=== PATIENT | female | born 1995 | race Caucasian/White ===

== ENCOUNTER 2025-05-27 21:58 | Emergency (ER) | payer BC, SELFPAY ==
--- OUTSIDE RECORDS SUMMARY | 2023-01-04 10:00 | XMS_ITS | Continuity of Care Document ---
Author Organization [facility] Address [address] [place] [address] Phone Care Team Providers Care Separations Scientist Name Role Phone Lukas Benavides Unavailable Unavailable Allergies, Adverse Reactions, Alerts Substance Reaction Status Criticality No Known allergies Procedures Procedure Date TB Read TB INTRADERMAL TEST TB Read TB INTRADERMAL TEST No Charge TB INTRADERMAL TEST IMMUNIZATION ADMIN CHICKEN POX VACCINE, SC IMMUNIZATION ADMIN CHICKEN POX VACCINE, SC IMMUNIZATION ADMIN Meningococcal Conjugate Vaccine 015 IMMUNIZATION ADMIN, EACH ADD TDAP VACCINE >7 IM IMMUNIZATION ADMIN MENINGOCOCCAL VACCINE, IM IMMUNIZATION ADMIN, EACH ADD TDAP VACCINE >7 IM SPORTS PHYSICIAL OFFICE/OUTPATIENT VISIT, NEW Advance Directives Directive Yes / No Effective Date File Name No Information Encounters Encounter Description Practice Location Reason(s) For Visit Diagnoses Date Provider Providers Copied on Encounter [facility], [address], [place], [id number], [place] tel:[phone] [facility] No Information 3 Yuri Figueroa. [address], [place], [id number] , [place]. tel: [phone] [facility], [address], [place], [id number], [place] tel:[phone] [facility] Encounter for screening for respiratory tuberculosis 3 Visci DO Lukas. [address], [place], [id number] , [place]. tel: [phone] [facility], [address], [place], [id number], [place] tel:[phone] [facility] No Information 3 Visci DO Lukas. [address], [place], [id number] , [place]. tel: [phone] [facility], [address], [place], [id number], [place] tel:[phone] [facility] Encounter for screening for respiratory tuberculosis 3 Visci DO Lukas. [address], [place], [id number] , [place]. tel: [phone] [facility], [address], [place], [id number], [place] tel:[phone] [facility] Encounter for screening for respiratory tuberculosis Sep- 0- 1 Visci DO Lukas. [address], [place], [id number] , [place]. tel: [phone] [facility], [address], [place], [id number], [place] tel:[phone] [facility] TB test (chief complaint) Encounter for screening for respiratory tuberculosis Sep-0 1 Visci DO Lukas. [address], [place], [id number] , [place]. tel: [phone] [facility], [address], [place], [id number], [place] tel:[phone] [facility] No Information 0 Visci DO Lukas. [address], [place], [id number] , [place]. tel: [phone] [facility], [address], [place], [id number], [place] tel:[phone] [facility] No Information 0 Visci DO Gaytan. [address], [place], [id number] , [place]. tel:[phone] [facility], [address], [place], [id number], [place] tel:[phone] [facility] No Information 5 Visci DO Gaytan. [address], [place], [id number] , [place]. tel:[phone] SPORTS PHYSICIAL [facility], [address] [place] [address], [id number], [place] tel:[phone] [facility] physical (sport) (chief complaint) Sports PhysicalRoutine or child health check 1 Braeden Pollock. [address] [place], [address]. tel:[phone] Family History Family Member Type Diagnosis Age At Onset grandparent Problem (finding) Cancer Father Problem (finding) hypertension Father Problem (finding) diabetes melli tus in first degree relative Immunizations Vaccine Date Status Comments Varicella administered Source: New Imm unization Record Varicella administered Source: New Imm unization Record TDaP administered Source: New Imm unization Record MCV4 administered Source: New Imm unization Record Payers Payer name Insurance type Covered green party ID Authoriza tion(s) [facility] [place] [id number] [facility] [place] [id number] [facility] [place] CI [id number] [facility] [place] [id number] Social History Type Description Quantity Date Captured Comments Alcohol Use Details Unknown Caffeine Use Details Unknown Tobacco Use Status No Information Smoking Status No Information Sex Female Sexual Orientation Straight or heterosexual Gender Identity Female Chief Complaint And Reason For Visit No Information Reason For Referral Reason For Referral No Information Plan Of Treatment Date Type Action Status Goal RLP. Due on due Goal Depression screening. Due on due Goal PAP. Due on due Goal PRAPARE ASSESSMENT. Due on due Goal Influenza vaccine. Due on [place] due Goal Tdap due Goal Tdap Vaccine. Due on 2024 due Goal Tdap Vaccine. Due on 2024 due Goal PAP. Due on due Goal Tdap due Goal Influenza vaccine. Due on [place] due Goal Depression screening. Due on due Goal RLP. Due on due Goal PRAPARE ASSESSMENT. Due on due Goal Tdap Vaccine. Due on 2024 due Goal PRAPARE ASSESSMENT. Due on due Goal Depression screening. Due on due Goal Tdap due Goal PAP. Due on due Goal RLP. Due on due Goal Influenza vaccine. Due on [place] due Goal PAP. Due on due Goal Tdap due Goal Depression screening. Due on due Goal PRAPARE ASSESSMENT. Due on due Goal Tdap Vaccine. Due on 2024 due Goal RLP. Due on due Goal Influenza vaccine. Due on Ma due History Of Present Illness Encounter Date Complaint History Of Prese nt Illness TB test Positive TB in t he pastBorn in the [place] Functional Status Date Functional Assessmen t No Information Instructions Date Instruction Additional Infor mation No Information Assessments Type Assessment Date No Information Patient Care Teams Name Effective Dates (start - stop) Status Members No Information
--- OUTSIDE RECORDS SUMMARY | 2025-05-27 22:15 | XMS_ITS | Encounter Summary ---
Author Organization [employer] Address [facility] [id number] [address] [place] [address] Care Team Providers Care Asparagus Buncher Name Role Phone Barbara Ramires MD Primary Care Provider Reason for Visit * Reason Comments Med Refill Encounter Details Date Type Department Care Team (Late st Contact Info) Description 12/10/2020 Refill [facility] [address] [place] [phone] Ileana Graves MD [address] [place] [address] 101, [address], [address] [place] [address] Epilepsy, generalized, convulsive ([facility]) Social History Tobacco Use Types Packs/Day Years Used Date Smoking Tobacco: Never Smokeless Tobacco: Never Alcohol Use Standard Drinks/Week Comments Not Currently 0 (1 standard drink = 0.6 oz pur e alcohol) Childcare Answer Date Recorded Childcare Unknown 03/23/2019 Employment Answer Date Recorded Employment Unknown 03/23/2019 Purpose - Life Answer Date Recorded Purpose and direction in life Unknown Comments Unknown Sex and Gender Information Value Date Recorded Sex Assigned at Not on file Legal Sex Female 4:02 PM EDT Gender Identity Not on file Sexual Orientation Not on file documented as of this encounter Plan of Treatment Not on file documented as of this encounter Visit Diagnoses Diagnosis Epilepsy, generalized, 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
--- OUTSIDE RECORDS SUMMARY | 2025-05-27 22:15 | XMS_ITS | Encounter Summary ---
Author Organization [employer] Address [facility] [place][id number] [address] [place] [address] Care Team Providers Care Typewriter Assembly And Parts Inspector Name Role Phone Barbara Ramries MD Primary Care Provider Reason for Visit * Reason Comments Med Refill Encounter Details Date Type Department Care Team (Late st Contact Info) Description 01/22/2021 Refill [facility] [address] [place] [phone] Ileana Graves MD [address] [place] [address] 101, [address], [address] [place] [address] Epilepsy, generalized, convulsive ([facility]-H[facility]) Social History Tobacco Use Types Packs/Day Years [...] epilepsy documented in this encounter Care Teams Typewriter Assembly And Parts Inspector Relationship Specialty Start Date End Date Barbara Ramires MD [address] [place], [place] [id number] PCP - General 03/29/18 documented as of this encounter
--- OUTSIDE RECORDS SUMMARY | 2025-05-27 22:15 | XMS_ITS | Encounter Summary ---
Author Organization [employer] Address [facility] [id number] [address] [place] [address] Care Team Providers Care Slat Pickler Name Role Phone Barbara Ramires MD Primary Care Provider Reason for Visit * Reason Comments Med Refill Encounter Details Date Type Department Care Team (Late st Contact Info) Description 01/31/2021 Refill [facility] [address] [place] [phone] Ileana Graves MD [address] [place] [address] [address], [address] [place] [address] Social History Tobacco Use Types Packs/Day Years [...] documented as of this encounter Visit Diagnoses Not on filedocumented in this encounter Care Teams Slat Pickler Relationship Specialty Start Date End Date Barbara Ramires MD [address] [place] [address] PCP - General 03/29/18 documented as of this encounter
--- OUTSIDE RECORDS SUMMARY | 2025-05-27 22:15 | XMS_ITS | Encounter Summary ---
Author Organization [employer] Address [facility] [id number] [address] [place] [address] Care Team Providers Care Employee Wellness/Fitness Coordinator Name Role Phone Barbara Ramires MD Primary Care Provider [phone] Reason for Visit * Reason Comments Med Refill Encounter Details Date Type Department Care Team (Late st Contact Info) Description 12/31/2020 Refill [facility] [address] [place] [phone] Ileana Graves MD [address] [place] [address] [address], [address], [address] [place] [address] Social History Tobacco Use Types [...] on filedocumented in this encounter Care Teams Employee Wellness/Fitness Coordinator Relationship Specialty Start Date End Date Barbara Ramires MD [address] [place] [address] PCP - General 03/29/18 documented as of this encounter
--- OUTSIDE RECORDS SUMMARY | 2025-05-27 22:15 | XMS_ITS | Encounter Summary ---
Author Organization [employer] Address [facility] [place][id number] [address] [place] [address] Care Team Providers Care Finance Advisor Name Role Phone Barbara Ramires MD Primary Care Provider Reason for Visit * Reason Comments Med Refill Encounter Details Date Type Department Care Team (Late st Contact Info) Description 06/28/2020 Refill [facility] [address] [place] [phone] Ileana Graves MD [address] [place] [address] 101, [address], [address] [place] [phone] Epilepsy, generalized, convulsive ([facility]) Social History Tobacco Use Types Packs/Day Years Used Date Smoking Tobacco: Never Smokeless Tobacco: Never Alcohol Use Standard Drinks/Week Comments Not Currently 0 (1 standard drink = 0.6 oz pur e alcohol) Childcare Answer Date Recorded Childcare Unknown 03/23/2019 Employment Answer Date Recorded Employment Unknown 03/23/2019 Comments Unknown Sex and Gender Information Value Date Recorded Sex Assigned at Not on file Legal Sex Female 4:02 PM EDT Gender Identity Not on file Sexual Orientation Not on file documented as of this encounter Plan of Treatment Not on file documented as of this encounter Visit Diagnoses Diagnosis Epilepsy, generalized, convulsive ([facility]) Generalized convulsive epilepsy without mention of intractable epilepsy documented in this encounter Care Teams Finance Advisor Relationship Specialty Start Date End Date Barbara Ramires MD [address] [place] [address] PCP - General 03/29/18 documented as of this encounter
--- OUTSIDE RECORDS SUMMARY | 2025-05-27 22:15 | XMS_ITS | Encounter Summary ---
Author Organization [employer] Address [facility] [place]-[id number] [address] [place] [address] Care Team Providers Care Wall Worker Name Role Phone Barbara Ramires MD Primary Care Provider [phone] Reason for Visit * Reason Comments Med Refill Encounter Details Date Type Department Care Team (Late st Contact Info) Description 06/14/2020 Refill [facility] [address] [place] [phone] Ileana Graves MD [address] [place] [address] 101, [address], [address] [place] [phone] Epilepsy, generalized, convulsive ([facility]) Social History Tobacco Use Types Packs/Day [...] encounter Visit Diagnoses Diagnosis Epilepsy, generalized, convulsive ([facility]) Generalized convulsive epilepsy without mention of intractable epilepsy documented in this encounter Care Teams Wall Worker Relationship Specialty Start Date End Date Barbara Ramires MD [address] [place] [address] PCP - General 03/29/18 documented as of this encounter
--- OUTSIDE RECORDS SUMMARY | 2025-05-27 22:15 | XMS_ITS | Encounter Summary ---
Author Organization [employer] Address [facility] [place]-[id number] [address] [place] [address] Care Team Providers Care Payment Poster Name Role Phone Barbara Ramires MD Primary Care Provider Reason for Visit * Reason Comments Med Refill Encounter Details Date Type Department Care Team (Late st Contact Info) Description 12/10/2020 Refill [facility] [address] [place] [phone] Brissa Bates MD [address] [place] [address] 101, [address], [address] [place] [phone] Epilepsy, generalized, convulsive ([facility]) Social History Tobacco Use Types Packs/Day Years [...] on file documented as of this encounter Miscellaneous Notes * Telephone Encounter - Brissa Bates MD - 12/10/2020 10:32 AM EST Patient follows with Dr. Graves. Brissa Bates MD documented in this encounter Plan of Treatment Not on file documented as of this encounter Visit Diagnoses Diagnosis Epilepsy, generalized, convulsive ([facility]) Generalized convulsive epilepsy without mention of intractable epilepsy documented in this encounter Care Teams Payment Poster Relationship Specialty Start Date End Date Barbara Ramires MD [address] [place] [address] PCP - General 03/29/18 documented as of this encounter
--- OUTSIDE RECORDS SUMMARY | 2025-05-27 22:16 | XMS_ITS | Encounter Summary ---
Author Organization [employer] Address [facility] [id number] [address] [place] [address] Care Team Providers Care Rfid Analyst Name Role Phone Barbara Ramires MD Primary Care Provider [phone] Reason for Visit * Reason Comments Med Refill Encounter Details Date Type Department Care Team (Late st Contact Info) Description 06/15/2019 Refill [facility] [address] [place] [phone] Ileana Graves MD [address] [place] [address] 101, [address], [address] [place] [phone] Epilepsy, generalized, convulsive ([facility]) Social History Tobacco Use Types Packs/Day Years Used Date Smoking Tobacco: Never Smokeless Tobacco: Never Alcohol Use Standard Drinks/Week Comments No 0 (1 standard drink = 0.6 oz [...] encounter Visit Diagnoses Diagnosis Epilepsy, generalized, convulsive ([facility]) Generalized convulsive epilepsy without mention of intractable epilepsy documented in this encounter Care Teams Rfid Analyst Relationship Specialty Start Date End Date Barbara Ramires MD [address] [place] [address] PCP - General 03/29/18 documented as of this encounter
--- OUTSIDE RECORDS SUMMARY | 2025-05-27 22:16 | XMS_ITS | Encounter Summary ---
Author Organization [employer] Address [facility] [place]-[id number] [address] [place] [address] Care Team Providers Care Operations Support Representative Name Role Phone Barbara Ramires MD Primary Care Provider [phone] Reason for Visit * Reason Comments Med Refill Encounter Details Date Type Department Care Team (Late st Contact Info) Description 04/03/2019 Refill [facility] [address] [place] [phone] Ileana Graves MD [address] [place] [address] 101, [address], [address] [place] [phone] Social History Tobacco Use Types Packs/Day Years [...] on filedocumented in this encounter Care Teams Operations Support Representative Relationship Specialty Start Date End Date Barbara Ramires MD NPI: [id number] [place] [address] PCP - General 03/29/18 documented as of this encounter
--- OUTSIDE RECORDS SUMMARY | 2025-05-27 22:16 | XMS_ITS | Clinical Summary ---
Author Organization [employer] Address [facility] [id number] [address] [place] [address] Care Team Providers Care Printed Circuit Boards Inspector Name Role Phone Barbara Ramires MD Primary Care Provider Allergies No known active allergies Medications perampaneL (FYCOMPA) 12 mg tabletIndicatio ns:Epilepsy, generalized, convulsive (CMS-HCC) TAKE 1 TABLET BY MOUTH IN THE MORNING 30 tablet 5 4 Active tswegjtf-sxo-cu rrous fumarate (MULTI VITAMIN) 9 mg iron/15 mL liquid Active midazolam, PF, (VERSED) 5 mg/mL solutionIndicat ions:Epilepsy, generalized, convulsive (CMS-HCC) Give 2.5mg intranasally at onset of aura, staring spell, or seizure greater than 5 minutes. 2 mL 5 4 Active midazolam (VERSED) 5 mg/mL injectionIndica tions:Epilepsy, generalized, convulsive (CMS-HCC) Use FRANCESCO unit and give 0.5ml intranasally at onset of aura, staring spell or seizure greater than 5 mins 2 mL 2 4 Active levETIRAcetam (KEPPRA) 1000 mg tabletIndicatio ns:Epilepsy, generalized, convulsive (CMS-HCC),Tank ile absence epilepsy (CMS-HCC) Take 2 tablets by mouth twice daily 120 tablet 5 5 Active lamoTRIgine (LaMICtal) 200 mg tabletIndicatio ns:Epilepsy, generalized, convulsive (CMS-HCC) TAKE 1 TABLET BY MOUTH ONCE DAILY IN THE MORNING AND 1 BEFORE BEDTIME 60 tablet 5 5 Active lamoTRIgine (LaMICtal) 100 mg tabletIndicatio ns:Epilepsy, generalized, convulsive (CMS-HCC) TAKE 1 TABLET BY MOUTH TWICE DAILY IN THE MORNING AND AT BEDTIME 60 tablet 5 5 Active Active Problems Problem Noted Date Diagnosed Date Epilepsy, generalized, convulsive 03/29/2018 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 Encounters Date Type Department Care Team Description 03/30/2025 Refill [facility] [address] [place] [phone] Ileana Graves MD Epilepsy, generalized, convulsive (CMS-HCC) from Last 3 Months Family History Medical History Relation Name Comments Diabetes Father Hypertension Father Diabetes Mother Hypertension Mother Relation Name Status Comments Father Alive Mother Alive Social History Tobacco Use Types Packs/Day Years Used Date Smoking Tobacco: Never Smokeless Tobacco: Never Alcohol Use Standard Drinks/Week Comments Not Currently 0 (1 standard drink = 0.6 oz pur e alcohol) ss PHQ-2 Answer Date Recorded Total Score 0 05/29/2024 Childcare Answer Date Recorded Childcare Unknown 03/23/2019 Employment Answer Date Recorded Employment Unknown 03/23/2019 Hunger Screening Answer Date Recorded Within the past 12 months we worried whether our food would run out before we got money to buy more. Never True 05/29/2024 Within the past 12 months th e food we bought just didn't last and we didn't have money to get more. Never True 05/29/2024 Purpose - Life Answer Date Recorded Purpose and direction in life Unknown Comments Unknown Sex and Gender Information Value Date Recorded Sex Assigned at Not on file Legal Sex Female 4:02 PM EDT Gender Identity Not on file Sexual Orientation Not on file Last Filed Vital Signs Vital Sign Reading Time Taken Comments Blood Pressure 118/62 05/29/2024 2:21 PM EDT Pulse 62 05/29/2024 2:21 PM EDT Temperature - - Respiratory Rate - - Oxygen Saturation - - Inhaled Oxygen Concentration - - Weight 85.8 kg (189 lb 3.2 oz) 05/29/2024 2:21 P M EDT Height 170.2 cm (5' 7 ) 05/29/2024 2:21 PM EDT Body Mass Index 29.63 05/29/2024 2:21 PM EDT Plan of Treatment Health Maintenance Due Date Last Done Comments Adult BMI Follow Up Plan 2014 Pap Smear 2017 COVID-19 Vaccine (4 - 2023-2 5 season) 2024 05/28/2022, 06/14/2021, 05/21/2021 Adult BMI Screening 05/29/2025 05/29/2024 Depression Screening 05/29/2025 05/29/2024 Tobacco Screening 05/29/2025 05/29/2024 Influenza Vaccine 06/11/2025 08/18/2022, , 09/18/2019, Additional history exists DTaP,Tdap and Td Vaccines (8 - Td or Tdap) 03/02/2028 03/02/2018, 04/10/2015, 2001, Additional history exists Medical Devices Not on file Insurance [employer] Care Teams Printed Circuit Boards Inspector Relationship Specialty Start Date End Date Barbara Ramires MD [address] [place] [address] PCP - General 03/29/18
--- OUTSIDE RECORDS SUMMARY | 2025-05-27 22:16 | XMS_ITS | Encounter Summary ---
Author Organization [facility] tem Address [facility] [place][id number] [address] [place] [address] Care Team Providers Care Resource Technician Name Role Phone Barbara Ramires MD Primary Care Provider [phone] Encounter Details Date Type Department Care Team (Late st Contact Info) Description 07/13/2022 Orders Only [facility] - Neurophysiology [address] [place] [phone] Rama Solomon Social History Tobacco Use Types Packs/Day Years Used Date Smoking Tobacco: Never Smokeless Tobacco: Never Alcohol Use Standard Drinks/Week Comments Not Currently 0 (1 standard drink = 0.6 oz pur e alcohol) PHQ-2 Answer Date Recorded Total Score 0 04/09/2022 Childcare Answer Date Recorded Childcare Unknown 03/23/2019 Employment Answer Date Recorded Employment Unknown 03/23/2019 Purpose - Life Answer Date Recorded Purpose and direction in life Unknown Comments Unknown Sex and Gender Information Value Date Recorded Sex Assigned at Not on file Legal Sex Female 4:02 PM EDT Gender Identity Not on file Sexual Orientation Not on file COVID-19 Exposure Response Date Recorded In the last month, have you been in contact with someone who was confirmed or suspected to have Coronavirus / COVID-19? No / Unsure 07/13/2022 7:17 AM EDT documented as of this encounter Plan of Treatment Not on file documented as of this encounter Visit Diagnoses Not on filedocumented in this encounter Additional Health Concerns Assessment Noted Time PHQ-9 Depression Total Score: 0 04/09/20 22 1:44 PM EDT documented as of this encounter Care Teams Resource Technician Relationship Specialty Start Date End Date Barbara Ramires MD [address] [place] [address] PCP - General 03/29/18 documented as of this encounter
--- OUTSIDE RECORDS SUMMARY | 2025-05-27 22:16 | XMS_ITS | Encounter Summary ---
Author Organization [employer] Address [facility] [id number] [address] [place] [address] Care Team Providers Care Mechanical Design Engineer Facilities Name Role Phone Barbara Ramires MD Primary Care Provider Reason for Visit * Reason Onset Date Comments Med Refill 2019 Encounter Details Date Type Department Care Team (Late st Contact Info) Description 2019 Refill [facility] [address] [place] [phone] Haily Carpenter RMA Social History Tobacco Use Types Packs/Day Years [...] encounter Miscellaneous Notes * Telephone Encounter - SARAH Rodrigez - 2019 4:02 PM EDT error SARAH Rodrigez 12/19/19 1619 documented in this encounter Plan of Treatment Not on file documented as of this encounter Visit Diagnoses Not on filedocumented in this encounter Care Teams Mechanical Design Engineer Facilities Relationship Specialty Start Date End Date Barbara Ramires MD [address] [place] [id number] PCP - General 03/29/18 documented as of this encounter
--- OUTSIDE RECORDS SUMMARY | 2025-05-27 22:16 | XMS_ITS | Clinical Summary ---
Author Organization [facility] Address [address] [place] [address] Care Team Providers Care Esl Tutor Name Role Phone Unavailable Primary Care Provider Unavailabl e Allergies No known active allergies Medications midazolam 2.5 mg/kg/dose by INTRANASAL route as needed. Active etonogestrel (NEXPLANON) subdermal implant 68 mg 1 Each by SUBDERMAL route one time only for 1 dose. Active folic acid 1 mg tablet Take 3 tablets by mouth once daily. Patient states she takes a single 3 mg tablet. Active lamoTRIgine (LAMICTAL) 200 mg tablet Take 1 tablet by mouth twice daily. Take with 100 mg tablets for total dose of 300 mg BID. Active lamoTRIgine (LAMICTAL) 100 mg tablet Take 1 tablet by mouth twice daily. Take with 200 mg tablets for total dose of 300 mg BID. Active levETIRAcetam (KEPPRA) 1,000 mg tablet Take 2 tablets by mouth twice daily. Active perampanel (FYCOMPA) 6 mg tab(s) Take 1 tablet by mouth daily at bedtime. 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 Never 04/28/2019 Average Number of Drinks Not on file 019 Frequency of Binge Drinking Not on file 04/10 Area Deprivation Index Answer Date Garth rded National Score (1-100), lower number is lower ri sk Not on file 09/17/2020 State Score (1-10), lower number is lower risk N ot on file 09/17/2020 Data from: https://www.neighborhoodatlas.medicine.[facility]/. Last address used for calculation Not on file 09/17/2020 Comments Unknown Sex and Gender Information Value Date Recorded Sex Assigned at Not on file Legal Sex Female 11:26 AM EDT Gender Identity Not on file Sexual Orientation Not on file Last Filed Vital Signs Vital Sign Reading Time Taken Comments Blood Pressure 119/76 04/28/2019 9:11 AM EDT Pulse 76 04/28/2019 9:11 AM EDT Temperature - - Respiratory Rate 14 04/28/2019 9:11 AM EDT Oxygen Saturation 98% 04/28/2019 9:11 AM EDT Inhaled Oxygen Concentration - - Weight 77.7 kg (171 lb 3.2 oz) 04/28/2019 9:11 A M EDT Height 170.2 cm (5' 7 ) 04/28/2019 9:11 AM EDT Body Mass Index 26.81 04/28/2019 9:11 AM EDT Plan of Treatment Health Maintenance Due Date Last Done Comments Anxiety Screening 2014 Depression Screening 2014 HIV Screening 2014 Hepatitis C Screening 2014 Cervical Cancer Screening 2017 HPV Vaccine (1 - 3-dose SCDM series) 12/20/2023 DTaP,Tdap,Td Vaccine (7 - Td or Tdap) 04/10/2025 04/10/2015, 2001, 07/15/1998, Additional history exists Influenza Vaccine (#1) 2025 Hepatitis B Vaccine Completed 07/10/1997, 01/19/1997, [address] [place] [id number] O [employer] PPO
--- OUTSIDE RECORDS SUMMARY | 2025-05-27 22:16 | XMS_ITS | Encounter Summary ---
Author Organization [facility] Address [address] [place] [address] Care Team Providers Care It Quality Analyst Name Role Phone Barbara Ramires MD Primary Care Provider [phone] Irina Macedo NP Unavailable [phone] Encounter Details Date Type Department Care Team (Late st Contact Info) Description 06/20/2024 Abstract [facility] [address] [place] [phone] Irina Macedo NP [address] [place] [address] Social History Tobacco Use Types Packs/Day Years Used Date Smoking Tobacco: Never Smokeless Tobacco: Never Alcohol Use Standard Drinks/Week Comments Yes 0 (1 standard drink = 0.6 oz pur e alcohol) Comments Unknown Sex and Gender Information Value Date Recorded Sex Assigned at Not on file Legal Sex Female 6:36 PM EDT Gender Identity Female 12/23/2022 6:36 PM EDT Sexual Orientation Not on file documented as of this encounter Plan of Treatment Not on file documented as of this encounter Visit Diagnoses Not on filedocumented in this encounter Care Teams It Quality Analyst Relationship Specialty Start Date End Date Barbara Ramires MD [address] [place] [address] PCP - General Family Medicine 02/16/23 Irina Macedo NP [address] [place] [address] PCP - [place] [employer] 08/22/23 documented as of this encounter
--- OUTSIDE RECORDS SUMMARY | 2025-05-27 22:16 | XMS_ITS | Encounter Summary ---
Author Organization [employer] Address [facility] [place][id number] [address] [place] [address] Care Team Providers Care Pattern Storage Clerk Name Role Phone Barbara Ramires MD Primary Care Provider Reason for Visit * Reason Comments Med Refill Encounter Details Date Type Department Care Team (Late st Contact Info) Description 04/09/2022 Refill [facility] [address] [place] [phone] Ileana Graves MD [address] [place] [address] [address], [address] [place] [phone] Epilepsy, generalized, convulsive ([facility]) Social History Tobacco Use Types Packs/Day [...] have Coronavirus / COVID-19? No / Unsure 04/09/2022 1:26 PM EDT documented as of this encounter Plan of Treatment Not on file documented as of this encounter Visit Diagnoses Diagnosis Epilepsy, generalized, convulsive ([facility]) Generalized convulsive epilepsy without mention of intractable epilepsy documented in this encounter Additional Health Concerns Assessment Noted Time PHQ-9 Depression Total Score: 0 04/09/20 22 1:44 PM EDT documented as of this encounter Care Teams Pattern Storage Clerk Relationship Specialty Start Date End Date Barbara Ramires MD [address] [place] [address] PCP - General 03/29/18 documented as of this encounter
--- OUTSIDE RECORDS SUMMARY | 2025-05-27 22:16 | XMS_ITS | Encounter Summary ---
Author Organization [employer] tem Address [facility] [place]-[id number] [address] [place] [address] Care Team Providers Care Varnishing Unit Operator Name Role Phone Barbara Ramires MD Primary Care Provider Reason for Visit * Reason Comments Med Refill Encounter Details Date Type Department Care Team (Late st Contact Info) Description 07/30/2021 Refill [facility] [address] [place] [phone] Ileana Graves MD [address] [place] [address] 101, [address] [place] [phone] Epilepsy, generalized, convulsive ([facility]) Social History Tobacco Use Types Packs/Day [...] epilepsy documented in this encounter Care Teams Varnishing Unit Operator Relationship Specialty Start Date End Date Barbara Ramires MD [address] [place], [place] [phone] PCP - General 03/29/18 documented as of this encounter
--- OUTSIDE RECORDS SUMMARY | 2025-05-27 22:16 | XMS_ITS | Encounter Summary ---
Author Organization [employer] Address [facility] [place]-[id number] [address] [place] [address] Care Team Providers Care Fireman Helper Name Role Phone Barbara Ramires MD Primary Care Provider Encounter Details Date Type Department Care Team ([facility] Contact Info) Description 01/10/2019 Refill [facility] [address] [place] [phone] Caren Gonzalez CMA Epilepsy, generalized, convulsive ([facility]) Social History Tobacco Use Types Packs/Day Years Used Date Smoking Tobacco: Never Smokeless Tobacco: Never Alcohol Use Standard Drinks/Week Comments No 0 (1 standard drink = 0.6 oz pur e alcohol) Childcare Answer Date Recorded Childcare Unknown 01/05/2019 Employment Answer Date Recorded Employment Unknown 01/05/2019 Comments Unknown Sex and Gender Information Value Date Recorded Sex Assigned at Not on file Legal Sex Female 4:02 PM EDT Gender Identity Not on file Sexual Orientation Not on file documented as of this encounter Miscellaneous Notes * Telephone Encounter - Caren Gonzalez CMA - 01/10/2019 9:16 AM EDT PATIENT'S MOTHER CALLED BECAUSE YECENIA HAS HAD TWO SEIZURES RECENTLY AND WOULD LIKE FOR [facility] TO GIVE HER A CALL IN REGARDS TO THIS MATTER. SHEVALERIE STATED SHE WANTED DR GRAVES TO BE AWARE OF THIS. PLEASE ADVISE Caren Gonzalez CMA 01/10/19 0920 * Telephone Encounter - Sandhya Nye RN - 01/10/2019 9:16 AM EDT Spoke with patient's mother and she states patient had two seizures last night. One was not witnessed and the other witnessed. Mom states she used Midazolam before the first one which happened [id number]. The second happened around 815pm. Both lasting less than a minute. Mom states both were grand-mal. She has been taking 2mg of Fycompa since Mid december when initiated. She was to call up with update in two weeks to increase to 4mg, but had not. Mom states patient was really tired when she first started taking but tirednedss has decreased. Remaining AEDS is as follows: Lamictal 250mg am 300mg in the pm Keppra 2000mg BID Midazolam 5mg nasal spray as needed. Mom states patient has not missed any doses. Mom also states she had a stressful day yesterday due to trying to get into grad school. States patient has not really been stressed any more than her ordinary stressors as a student. Mom states patient is very frustrated and asking will this ever end? . Mom is asking if there anything else to be done to get under control. Please advise. Sandhya Nye RN 01/10/19 8433 * Telephone Encounter - Sandhya Nye RN - 01/10/2019 9:[address] Graves: Patient is to get Lamictal level drawn. Depending on levels may increase to 300mg BID. Patient is to increase Fycompa to 4mg for two weeks. Patient to call with update before increasing to 6mg. Detailed message left on mom's phone. Lab faxed to [facility]. Sandhya Nye RN 01/10/19 3484 documented in this encounter Plan of Treatment Not on file documented as of this encounter Results * Lamotrigine lamictal (01/14/2019) 01/14/2019 us Ileana Graves MD LAB BLOOD ORDERABLES Final Resu lt [facility] documented in this encounter Visit Diagnoses Diagnosis Epilepsy, generalized, 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 documented in this encounter Care Teams Fireman Helper Relationship Specialty Start Date End Date Barbara Ramires MD [address] [place], [place] [phone] PCP - General 03/29/18 documented as of this encounter
--- OUTSIDE RECORDS SUMMARY | 2025-05-27 22:16 | XMS_ITS | Encounter Summary ---
Author Organization [employer] Address [facility] [place]-[id number] [address] [place] [address] Care Team Providers Care Marketing Graphics Specialist Name Role Phone Barbara Ramires MD Primary Care Provider Encounter Details Date Type Department Care Team (Late st Contact Info) Description 11/11/2018 [facility] [address] [place] [phone] Sandhya Nye RN Social History Tobacco Use Types Packs/Day Years [...] on filedocumented in this encounter Care Teams Marketing Graphics Specialist Relationship Specialty Start Date End Date Barbara Ramires MD [address] [place] [address] PCP - General 03/29/18 documented as of this encounter
--- OUTSIDE RECORDS SUMMARY | 2025-05-27 22:16 | XMS_ITS | Encounter Summary ---
Author Organization [employer] Address [facility]-[id number] [address] [place] [address] Care Team Providers Care Medical Education Specialist Name Role Phone Barbara Ramires MD Primary Care Provider [phone] Reason for Visit * Reason Comments Med Refill Encounter Details Date Type Department Care Team (Late st Contact Info) Description 05/03/2022 Refill [facility] [address] [place] [phone] Ileana Graves MD [address] [place] [address] [address], [address], [address] [place] [phone] Epilepsy, generalized, convulsive ([facility]) Social History Tobacco Use Types [...] encounter Visit Diagnoses Diagnosis Epilepsy, generalized, convulsive ([facility]) Generalized convulsive epilepsy without mention of intractable epilepsy documented in this encounter Additional Health Concerns Assessment Noted Time PHQ-9 Depression Total Score: 0 04/09/20 22 1:44 PM EDT documented as of this encounter Care Teams Medical Education Specialist Relationship Specialty Start Date End Date Barbara Ramires MD [address] [place] [address] PCP - General 03/29/18 documented as of this encounter
--- OUTSIDE RECORDS SUMMARY | 2025-05-27 22:16 | XMS_ITS | Encounter Summary ---
Author Organization [employer] Address [facility] [place][id number] [address] [place] [address] Care Team Providers Care Senior Business Manager Name Role Phone Barbara Ramires MD Primary Care Provider Reason for Visit * Reason Comments Med Refill Encounter Details Date Type Department Care Team (Late st Contact Info) Description 12/28/2019 Refill [facility] [address] [place] [phone] Ileana Graves MD [address] [place] [address] 101, [address], [address] [place] [phone] Social History Tobacco Use Types Packs/Day Years [...] on filedocumented in this encounter Care Teams Senior Business Manager Relationship Specialty Start Date End Date Barbara Ramires MD [address] [place] [address] PCP - General 03/29/18 documented as of this encounter
--- OUTSIDE RECORDS SUMMARY | 2025-05-27 22:16 | XMS_ITS | Encounter Summary ---
Author Organization [employer] Address [facility] [place]-[id number] [address] [place] [address] Care Team Providers Care Acquisition Analyst Name Role Phone Barbara Ramires MD Primary Care Provider Reason for Visit * Reason Comments Med Refill Encounter Details Date Type Department Care Team (Late st Contact Info) Description 06/09/2020 Refill [facility] [address] [place] [phone] Ileana Graves MD [address] [place] [address] [address], [address], [address] [place] [phone] Epilepsy, generalized, convulsive ([facility]) Social History Tobacco Use Types Packs/Day Years [...] encounter Miscellaneous Notes * Telephone Encounter - Christina Tapia RN - 06/09/2020 12:29 PM EDT Last refill of lamotrigine 200 mg was on 12/14/2019, dispense #60 with 5 refills. Medication instructions confirmed in last office note dated 08/28/2019. Next follow up is not scheduled, but message has been routed and will be re-routed to MA's to schedule patient. Prescription pended and sent to provider for approval and signature. MA's: please schedule pt for follow-up appt. Per encounter dated 06/05/2020, Dr. Graves asked that pt be scheduled in August or September, but if no slots are available, can be added to a AM. Christina Tapia RN 06/10/20 1118 documented in this encounter Plan of Treatment Not on file documented as of this encounter Visit Diagnoses Diagnosis Epilepsy, generalized, convulsive ([facility]) Generalized convulsive epilepsy without mention of intractable epilepsy documented in this encounter Care Teams Acquisition Analyst Relationship Specialty Start Date End Date Barbara Ramires MD [address] [place] [address] PCP - General 03/29/18 documented as of this encounter
--- OUTSIDE RECORDS SUMMARY | 2025-05-27 22:16 | XMS_ITS | Encounter Summary ---
Author Organization [employer] Address [facility] [place][id number] [address] [place] [address] Care Team Providers Care Post Form Remover Name Role Phone Barbara Ramires MD Primary Care Provider Reason for Visit * Reason Comments Med Refill Encounter Details Date Type Department Care Team (Late st Contact Info) Description 12/01/2021 Refill [facility] [address] [place] [phone] Ileana Graves MD [address] [place] [address] [address], [address], [address] [place] [phone] Epilepsy, generalized, convulsive ([facility]) Social History Tobacco Use Types Packs/Day Years [...] epilepsy documented in this encounter Care Teams Post Form Remover Relationship Specialty Start Date End Date Barbara Ramires MD [address] [place], [place] [phone] PCP - General 03/29/18 documented as of this encounter
--- OUTSIDE RECORDS SUMMARY | 2025-05-27 22:16 | XMS_ITS | Encounter Summary ---
Author Organization [employer] Address [facility] [place][id number] [address] [place] [address] Care Team Providers Care Assembling Motor Builder Name Role Phone Barbara Ramires MD Primary Care Provider Reason for Visit * Reason Comments Med Refill Encounter Details Date Type Department Care Team (Late st Contact Info) Description 07/13/2022 Refill [facility] [address] [place] [phone] Ileana Graves MD [address] [place] [address] 101, [address], [address] [place] [phone] Epilepsy, generalized, convulsive ([facility]) Social History Tobacco Use Types Packs/Day Years [...] encounter Visit Diagnoses Diagnosis Epilepsy, generalized, convulsive ([facility]) Generalized convulsive epilepsy without mention of intractable epilepsy documented in this encounter Additional Health Concerns Assessment Noted Time PHQ-9 Depression Total Score: 0 04/09/20 22 1:44 PM EDT documented as of this encounter Care Teams Assembling Motor Builder Relationship Specialty Start Date End Date Barbara Ramires MD [address] [place] [address] PCP - General 03/29/18 documented as of this encounter
--- OUTSIDE RECORDS SUMMARY | 2025-05-27 22:16 | XMS_ITS | Encounter Summary ---
Author Organization [employer] Address [facility] [place]-[id number] [address] [place] [address] Care Team Providers Care Certified Ethical Hacker Name Role Phone Barabra Ramires MD Primary Care Provider Reason for Visit * Reason Onset Date Comments SAMPLES FYCOMPA 03/22/2024 Encounter Details Date Type Department Care Team (Late st Contact Info) Description 03/22/2024 Telephone [facility] [address] [place] [phone] Brittny Alvares SAMPLES COM Social History Tobacco Use Types Packs/Day Years [...] encounter Miscellaneous Notes * Telephone Encounter - Brittny Alvares - 03/22/2024 10:04 AM EDT Patient contacted our stating that she is in the process of transitioning between insurances and would like to know if there is anyway she can get samples of the FYCOMPA 12 mg tablets. If not patientwould like to know what she should do at this time. Please advise. * Telephone Encounter - Beéln Baker RN - 03/22/2024 10:04 AM EDT Called and spoke with patient and advised that she can go to [employer] patient assistance online and call the # listed to see if she qualifies for their assistance program. Asked for call back on whether or not she qualifies so we know if we either have to fill out our portion for forms or speak with Graves about switching medications until she gets her insurance back. She stated understanding. documented in this encounter Plan of Treatment Not on file documented as of this encounter Visit Diagnoses Not on filedocumented in this encounter Additional Health Concerns Assessment Noted Time PHQ-9 Depression Total Score: 0 04/09/20 22 1:44 PM EDT documented as of this encounter Care Teams Certified Ethical Hacker Relationship Specialty Start Date End Date Barbara Ramires MD [address] [place] [address] PCP - General 03/29/18 documented as of this encounter
--- OUTSIDE RECORDS SUMMARY | 2025-05-27 22:16 | XMS_ITS | Encounter Summary ---
Author Organization [employer] Address [facility] [place]-[id number] [address] [place] [address] Care Team Providers Care Sales Support Coordinator Name Role Phone Barbara Ramires MD Primary Care Provider Reason for Visit * Reason Comments Med Refill Encounter Details Date Type Department Care Team (Late st Contact Info) Description 12/06/2019 Refill [facility] [address] [place] [phone] Ileana Graves MD [address] [place] [address] 101, [address] [place] [phone] Epilepsy, generalized, convulsive ([facility]) (Primary Dx) Social History Tobacco Use Types Packs/Day Years [...] encounter Miscellaneous Notes * Telephone Encounter - Ileana Graves MD - 12/06/2019 10:09 AM EST Did we send it recently? * Telephone Encounter - Sandhya Nye RN - 12/06/2019 10:09 AM EST Last month, but there were no refills. Sandhya Nye RN 12/13/19 0907 documented in this encounter Plan of Treatment Not on file documented as of this encounter Visit Diagnoses Diagnosis Epilepsy, generalized, convulsive ([facility])- Primary Generalized convulsive epilepsy without mention of intractable epilepsy documented in this encounter Care Teams Sales Support Coordinator Relationship Specialty Start Date End Date Barbara Ramires MD [address] [place] [address] PCP - General 03/29/18 documented as of this encounter
--- OUTSIDE RECORDS SUMMARY | 2025-05-27 22:16 | XMS_ITS | Encounter Summary ---
Author Organization [employer] Address [facility] [id number] [address] 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
--- OUTSIDE RECORDS SUMMARY | 2025-05-27 22:16 | XMS_ITS | Encounter Summary ---
Author Organization [employer] Address [facility] [place]-[id number] [address] [place] [address] Care Team Providers Care Third Hand Name Role Phone Barbara Ramires MD Primary Care Provider Reason for Visit * Reason Comments Med Refill Encounter Details Date Type Department Care Team (Late st Contact Info) Description 11/29/2019 Refill [facility] [address] [place] [phone] Ileana Graves MD [address] [place] [address] 101, [address], [address] [place] [phone] Social History Tobacco Use Types Packs/Day Years [...] on filedocumented in this encounter Care Teams Third Hand Relationship Specialty Start Date End Date Barbara Ramires MD [address] [place] [address] PCP - General 03/29/18 documented as of this encounter
--- OUTSIDE RECORDS SUMMARY | 2025-05-27 22:16 | XMS_ITS | Clinical Summary ---
Author Organization [facility] Healthcare Address [address] [place] [address] Care Team Providers Care Collator Operator Name Role Phone Barbara Ramires MD Primary Care Provider + [phone] Allergies No known active allergies Medications etonogestrel-elut ing (Nexplanon) 68 mg contraceptive implant as directed Subcutaneous Active lamoTRIgine (LaMICtal) 100 MG tablet TAKE 1 TABLET BY MOUTH IN THE MORNING AND 1 TABLET AT BEDTIME 03/21/20 24 Active levETIRAcetam (Keppra) 1000 MG tablet Take 2 tablets by mouth in the morning and 2 tablets before bedtime. 12/22/19 24 Active Multiple Vitamins-Minerals (Multivitamin Women) tablet Orally Active Fycompa 12 MG tablet Take 1 tablet by mouth in the morning. 12/13/19 24 Active lamoTRIgine (LaMICtal) 200 MG tablet TAKE 1 TABLET BY MOUTH IN THE MORNING AND 1 TAB BEFORE BEDTIME 05/03/20 24 Active Active Problems Problem Noted Date Diagnosed Date Chronic tonsillitis 05/17/2024 Complex partial seizures kayy lving to generalized tonic-clonic seizures 05/17/2024 Grand mal seizure 05/17/2024 Halitosis 05/17/2024 Nonintractable epilepsy without status epileptic us 05/17/2024 Seizure disorder 05/17/2024 Seizure 05/17/2024 Patellofemoral pain syndrome of left knee 2023 Status post tonsillectomy 05/17/2024 Tonsil stone 05/17/2024 Generalized idiopathic epile psy and epileptic syndromes, not intractable, 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/29/2018 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 Immunizations Immunization Administration Dates Next Due DTaP, Unspecified 2001, 8,07/10/1997,05/01,02/26/1997 Hep B, adult 07/10/1997,01/19/1997,1996 HiB, unspecified 07/15/1998, 7,05/01/1997,02/26 Influenza, injectable, quadr ivalent, preservative free 08/18/2022,07/26/2021 MMR 2001,12/24/1997 Meningococcal MCV4P 04/10/2015 PPD Test 01/01/2023,12/22/2022 Polio, Unspecified 2001, 7,05/01/1997,02/26 Tdap 03/02/2018,04/10/2015 Varicella 08/29/2020,08/01/2020 Family History Relation Name Status Comments Father Alive Mother Alive Social History Tobacco Use Types Packs/Day Years Used Date Smoking Tobacco: Never Smokeless Tobacco: Never Tobacco Cessation:Counseling Given: Not Answered Alcohol Use Standard Drinks/Week Comments Yes 0 (1 standard drink = 0.6 oz pur e alcohol) Comments Unknown Sex and Gender Information Value Date Recorded Sex Assigned at Not on file Legal Sex Female 6:36 PM EDT Gender Identity Female 12/23/2022 6:36 PM EDT Sexual Orientation Not on file Last Filed Vital Signs Vital Sign Reading Time Taken Comments Blood Pressure 126/68 06/02/2024 7:54 AM EDT Pulse 62 06/02/2024 7:54 AM EDT Temperature 35.9 C (96.6 F) 06/02/2024 7:54 AM EDT Respiratory Rate - - Oxygen Saturation 99% 06/02/2024 7:54 AM EDT Inhaled Oxygen Concentration - - Weight 85.2 kg (187 lb 12.8 oz) 06/02/2024 7:54 AM EDT Height 170.2 cm (5' 7 ) 06/02/2024 7:54 AM EDT Body Mass Index 29.41 06/02/2024 7:54 AM EDT Plan of Treatment Health Maintenance Due Date Last Done Comments Influenza Vaccine (#1) 2025 08/18/2022, 2020 Insurance [employer] Care Teams Collator Operator Relationship Specialty Start Date End Date Barbara Ramires MD [address] [place] [address] PCP - General Family Medicine 02/16/23
--- OUTSIDE RECORDS SUMMARY | 2025-05-27 22:16 | XMS_ITS | Encounter Summary ---
Author Organization [employer] Address [facility] [id number] [address] [place] [address] Care Team Providers Care Pellet Press Operator Name Role Phone Barbara Ramires MD Primary Care Provider Encounter Details Date Type Department Care Team (Late st Contact Info) Description 02/24/2022 [facility] [address] [place] [phone] Brittny Alvares Social History Tobacco Use Types Packs/Day Years [...] * Telephone Encounter - Brittny Alvares - 02/24/2022 11:02 AM EDT Medication Refill request: Medication Name and Strength: Keppra and 1000 mg tablet FYCOMPA and 10 mg tablet FYCOMPA and 2 mg tablet Current dose & Frequency: actually taking - not what is listed on the prescription label keppra- 1000 mg tablet & 2000 mg 2x a day Fycompa 10 mg tablet & 1x a day FYCOMPA 2 mg tablet & 1x a day 30 day or 90 day supply preferred: 30 day supply for all Pharmacy Name: If already on preferred pharmacy list - name only If new pharmacy - specify address & phone number Vicente Esteves Request was made by: Mother Patient only has today and tomorrow worth of medications left. * Telephone Encounter - Belén Baker RN - 02/24/2022 11:02 AM EDT surescript refills sent to Dr. Graves to address. Patient needs a follow up as she has not been seen in clinic since 08/22/20. Please call patient ormother to make a follow up with Dr. Graves * Telephone Encounter - Brittny Alvares - 02/24/2022 11:02 AM EDT 1st attempt- left voicemail for mother to contact our office to schedule a follow up appt. * Telephone Encounter - Brittny Alvares - 02/24/2022 11:02 AM EDT Pantient is scheduled 04/09 at 1:30pm. documented in this encounter Plan of Treatment Not on file documented as of this encounter Visit Diagnoses Not on filedocumented in this encounter Care Teams Pellet Press Operator Relationship Specialty Start Date End Date Barbara Ramires MD [address] [place] [address] PCP - General 03/29/18 documented as of this encounter
--- OUTSIDE RECORDS SUMMARY | 2025-05-27 22:16 | XMS_ITS | Encounter Summary ---
Author Organization [employer] Address [id number] [address] [place] [address] Care Team Providers Care Physical Meteorologist Name Role Phone Barbara Ramires MD Primary Care Provider Reason for Visit * Reason Comments Med Refill Encounter Details Date Type Department Care Team (Late st Contact Info) Description 01/13/2022 Refill [facility] [address] [place] [phone] Ileana Graves MD [address] [place] [address] [address] [place] [phone] Epilepsy, generalized, convulsive ([facility]) Social History Tobacco Use Types [...] epilepsy documented in this encounter Care Teams Physical Meteorologist Relationship Specialty Start Date End Date Barbara Ramires MD [address] [place], [place] [id number] PCP - General 03/29/18 documented as of this encounter
--- OUTSIDE RECORDS SUMMARY | 2025-05-27 22:16 | XMS_ITS | Encounter Summary ---
Author Organization [employer] Address [facility] [id number] [address] [place] [address] Care Team Providers Care Application Performance Engineer Name Role Phone Barbara Ramires MD Primary Care Provider Reason for Visit * Reason Comments Med Refill Encounter Details Date Type Department Care Team (Late st Contact Info) Description 07/14/2022 Refill [facility] [address] [place] [phone] Ileana Graves MD [address] [place] [address] [address] [place] [phone] Juvenile absence epilepsy ([facility]) Social History Tobacco Use Types Packs/Day Years [...] as of this encounter Visit Diagnoses Diagnosis 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
--- OUTSIDE RECORDS SUMMARY | 2025-05-27 22:16 | XMS_ITS | Encounter Summary ---
Author Organization [employer] Address [facility] [id number] [address] [place] [address] Care Team Providers Care Fisher Quahog Name Role Phone Barbara Ramires MD Primary Care Provider Reason for Visit * Reason Comments Med Refill Encounter Details Date Type Department Care Team (Late st Contact Info) Description 10/30/2019 Refill [facility] [address] [place] [phone] Ileana Graves MD [address] [place] [address] [address], [address] [place] [phone] Social History Tobacco Use Types Packs/Day Years [...] on filedocumented in this encounter Care Teams Fisher Quahog Relationship Specialty Start Date End Date Barbara Ramires MD [address] [place] [id number] PCP - General 03/29/18 documented as of this encounter
--- OUTSIDE RECORDS SUMMARY | 2025-05-27 22:16 | XMS_ITS | Encounter Summary ---
Author Organization [employer] Address [facility] [id number] [address] [place] [address] Care Team Providers Care Optometrist President/Practice Owner Name Role Phone Barbara Ramires MD Primary Care Provider Reason for Visit * Reason Onset Date Comments Med Refill 06/17/2023 Encounter Details Date Type Department Care Team (Late st Contact Info) Description 06/17/2023 Refill [facility] [address] [place] [phone] Laura Ordoñez Epilepsy, generalized, convulsive (CMS-HCC); Juvenile absence epilepsy ([facility]) Social History Tobacco Use Types Packs/Day Years [...] encounter Miscellaneous Notes * Telephone Encounter - Laura Ordoñez - 06/17/2023 9:29 AM EDT Idania was told that a PA was sent last night to NEUROLOGY for completion. Cigarette Packer advised form was received. Idania asked if it could please be completed today. Patient has a dosage for tonight and tomorrow, then will be out of medication. perampaneL (FYCOMPA) 10 mg tablet perampaneL (FYCOMPA) 2 mg tablet Idania also asked about medication lamoTRIgine (LaMICtal) 100 mg tablet lamoTRIgine (LaMICtal) 200 mg tablet Cigarette Packer advised that refill was input as well. * Telephone Encounter - Ayde Jordan RN - 06/17/2023 9:29 AM EDT Spoke with patient to obtain clarification. She states she has new insurance and that's why she needs ne prior auth's at the last minute. Attempted to obtain new insurance information, patient asked if she could call us back. Waiting forcall back. * Telephone Encounter - Uzma Rivas - 06/17/2023 9:29 AM EDT Received call today 06/17/23 11:06 from patient in regard to previous message for prior auth. She stated that she has the following temporary insurance until she gets a new job: New Prescription Insurance information: Insurance Name: [facility] [employer] Plan ID#: [id number] Policy#: [id number] RxGrp#: [id number] RxBIN#: [id number] RxPCN#: ABV Provider Service Line phone#: [phone] Effective date: 05/11/23 Patient stated she no longer has [employer] PPO insurance. Patient mentioned that she needs the following med refills as well: - Fycompa 10 mg tab - Fycompa 2 mg tab - Lamotrigine 100 mg tab - Lamotrigine 200 mg tab - Keppra 1,000 mg tab * Telephone Encounter - Emily Hurt RN - 06/17/2023 9:29 AM EDT RN submitted PA on CMM for Fycompa 2 mg to [facility]. Response was PA not required. RAMIREZ: [id number] RN submitted PA on CMM for Fycompa 10 mg to Cherie. Awaiting insurance response. RAMIREZ: [id number] Levetiracetam does not require a PA. Lamotrigine 100 mg does not require a PA. Lamotrigine 200 mg does not require a PA. * Telephone Encounter - Emily Hurt RN - 06/17/2023 9:29 AM EDT Patient needs refill on Lamotrigine 100 mg and 200 mg and Fycompa 10 mg and 2 mg. Prescriptions pended for physician to review and sign. * Telephone Encounter - Emily Hurt RN - 06/17/2023 9:29 AM EDT RN called patient to let her know Fycompa 10 mg has been approved. Patient states the only prescription that she needs filled right now is the Keppra. * Telephone Encounter - Ileana Graves MD - 06/17/2023 9:29 AM EDT Already sent today documented in this encounter Plan of Treatment [...] documented as of this encounter Care Teams Optometrist President/Practice Owner Relationship Specialty Start Date End Date Barbara Ramires MD [address] [place] [address] PCP - General 03/29/18 documented as of this encounter
--- OUTSIDE RECORDS SUMMARY | 2025-05-27 22:16 | XMS_ITS | Encounter Summary ---
Author Organization [employer] Address [facility] [id number] [address] [place] [address] Care Team Providers Care Intellectual Property Legal Assistant Name Role Phone Barbara Ramires MD Primary Care Provider Reason for Visit * Reason Comments Med Refill Encounter Details Date Type Department Care Team (Late st Contact Info) Description 08/25/2019 Refill [facility] [address] [place] [phone] Ileana Graves MD [address] [place] [address] [address] [place] [phone] Epilepsy, generalized, convulsive ([facility]) Social History Tobacco Use Types Packs/Day [...] encounter Visit Diagnoses Diagnosis Epilepsy, generalized, convulsive ([facility]) Generalized convulsive epilepsy without mention of intractable epilepsy documented in this encounter Care Teams Intellectual Property Legal Assistant Relationship Specialty Start Date End Date Barbara Ramires MD [address] [place] [address] PCP - General 03/29/18 documented as of this encounter
--- OUTSIDE RECORDS SUMMARY | 2025-05-27 22:16 | XMS_ITS | Encounter Summary ---
Author Organization [employer] Address [facility] [id number] [address] [place] [address] Care Team Providers Care Telephonic Case Manager Name Role Phone Barbara Ramires MD Primary Care Provider [phone] Reason for Visit * Reason Comments Med Refill Encounter Details Date Type Department Care Team (Late st Contact Info) Description 05/09/2019 Refill [facility] [address] [place] [phone] Ileana Graves MD [address] [place] [address] [address] [place] [phone] Social History Tobacco Use Types Packs/Day Years [...] on filedocumented in this encounter Care Teams Telephonic Case Manager Relationship Specialty Start Date End Date Barbara Ramires MD NPI: [id number] [place] [id number] PCP - General 03/29/18 documented as of this encounter
--- OUTSIDE RECORDS SUMMARY | 2025-05-27 22:16 | XMS_ITS | Encounter Summary ---
Author Organization [employer] Address [facility] [id number] [address] [place] [address] Care Team Providers Care Receptionist Scheduler Name Role Phone Barbara Ramires MD Primary Care Provider Reason for Visit * Reason Comments Med Refill Encounter Details Date Type Department Care Team (Late st Contact Info) Description 12/15/2018 Refill [facility] [address] [place] [phone] Ileana Graves MD [address] [place] [address] [address] [place] [phone] Epilepsy, generalized, convulsive (CMS-HCC) Social History Tobacco Use Types Packs/Day Years [...] epilepsy documented in this encounter Care Teams Receptionist Scheduler Relationship Specialty Start Date End Date Barbara Ramires MD [address] [place] [id number] PCP - General 03/29/18 documented as of this encounter
--- OUTSIDE RECORDS SUMMARY | 2025-05-27 22:16 | XMS_ITS | Encounter Summary ---
Author Organization [employer] Address [facility] [id number] [address] [place] [address] Care Team Providers Care Dish Room Worker Name Role Phone Barbara Ramires MD Primary Care Provider Reason for Visit * Reason Comments Med Refill Encounter Details Date Type Department Care Team (Late st Contact Info) Description 12/20/2021 Refill [facility] [address] [place] [phone] Ileana Graves MD [address] [place] [address] [address] [place] [phone] Epilepsy, generalized, convulsive ([facility]) Social History Tobacco Use Types Packs/Day [...] epilepsy documented in this encounter Care Teams Dish Room Worker Relationship Specialty Start Date End Date Barbara Ramires MD [address] [place], [place] [phone] PCP - General 03/29/18 documented as of this encounter
--- OUTSIDE RECORDS SUMMARY | 2025-05-27 22:16 | XMS_ITS | Encounter Summary ---
Author Organization [employer] Address [facility] [id number] [address] 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 Pended to Dr. Graves for review and signature Start date from last refill: 01/12/22 Next follow up: needs to be schedule. Message sent to phone room to call and schedule follow up. * Telephone Encounter - Hannah Jarvis - 02/21/2022 12:44 PM EDT Patient's mother Idania Workman called to check on the status of this refill. She would like a return call * Telephone Encounter - Ileana Graves MD - 02/21/2022 12:44 PM EDT Prescription sent over. 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
[2025-05-27 22:18] VITALS: BP 126/82; PULSE 69; TEMP 36.6; O2SAT 100; BMI 29.8
--- OUTSIDE RECORDS SUMMARY | 2025-05-27 22:19 | XMS_ITS | CCD ---
Author Organization [facility] Care Team Providers Care Extra Hand Name Role Phone NONE, XXXX Unavailable Unavailable Yamil, Alla Unavailable Unavailable PHYSICIAN, DEFAULT Unavailable Unavailable PHYSICIAN, DEFAULT Unavailable Unavailable FLORENCIA JOSEPH Attending Unavailable MD Allie Ramires Primary Care Provider [phone] MD Ileana Batista Attending Provider [phone] Ileana Batista Attending Unavailable Ileana Batista Admitting Unavailable Allie Ramires Primary Care Unavailable ILEANA BATISTA Attending Unavailable ALLIE RAMIRES Referring Unavailable ALLIE RAMIRES Primary Care Unavailable ANNETTA AGUILLON Attending Unavailable ANIYAH JOAQUIN Attending Unavailable Allie Ramires MD Primary Care Provider [phone] Case BEHAVIOUR SUPPORT TEACHERAnnetta Unavailable Allie Ramires MD Primary Care Provider Allergies Allergy Classification Reported Allergen(s) Allergy Type Date of Onset Reaction(s) Facility (1 source) No Known Medication Allergies; Translations: [No Known Medication Allergies] Propensity to adverse reactions to drug (disorder) [facility] Repository Medications Current Medications Medication Drug Class(es) Dates Sig (Normalized) Sig (Original) etonogestrel 68 mg drug implant (7 sources) Progestin Start: 06-02-2024 End: 06-02-2024 etonogestrel-eluting 68 mg contraceptive implant 1 each Start: 06-02-2024 End: 06-02-2024 etonogestrel-eluting 68 mg c ontraceptive implant 1 each Start: 06-02-2024 End: 06-02-2024 1 each, Implant, Once, On Fr i 06/02/24 at 0845, For 1 dose Start: 06-02-2024 End: 06-02-2024 1 each, Implant, Once, On Fr i 06/02/24 at 0845, For 1 dose etonogestrel-elu ting (Nexplanon) 68 mg contraceptive implant as directed Subcutaneous Active folic acid 0.4 mg oral tablet (2 sources) Start: 06-14-2017 End: 06-14-2017 take 300 ug by mouth once daily Folic Acid Active 300 MCG PO Daily June 14, 2017 12:00am lamoTRIgine 100 mg oral tablet (20 sources) Mood Stabilizer, Anti-epilepti c Agent Start: 09-28-2024 End: 03-30-2025 take 1 tablet by mouth twice daily at bedtime lamoTRIgine (LaMICtal) 100 mg tablet Indications: Epilepsy, generalized, convulsive (CMS-HCC) TAKE 1 TABLET BY MOUTH TWICE DAILY IN THE MORNING AND AT BEDTIME 60 tablet 5 03/30/2025 Active Start: 09-04-2024 End: 02-19-2025 take 1 tablet by mouth once daily in the morning, then take 1 tablet by mouth at bedtime lamoTRIgine (LaMICtal) 200 mg tablet Indications: Epilepsy, generalized, convulsive (CMS-HCC) TAKE 1 TABLET BY MOUTH ONCE DAILY IN THE MORNING AND 1 BEFORE BEDTIME 60 tablet 5 02/19/2025 Active Start: 09-01-2023 End: 09-04-2024 take 1 tablet by mouth in the morning, then take 1 tablet by mouth at bedtime lamoTRIgine (LaMICtal) 200 mg tablet Indications: Epilepsy, generalized, convulsive (CMS-HCC) TAKE 1 TABLET BY MOUTH IN THE MORNING AND 1 TAB BEFORE BEDTIME 60 tablet 5 09/04/2024 Active Start: 08-27-2023 End: 09-28-2024 take 1 tablet by mouth in the morning lamoTRIgine (LaMICtal) 100 mg tablet Indications: Epilepsy, generalized, convulsive (CMS-HCC) TAKE 1 TABLET BY MOUTH IN THE MORNING AND 1 TABLET AT BEDTIME 60 tablet 5 09/28/2024 Active Start: 03-02-2023 End: 04-27-2023 take 1 tablet by mouth in the morning lamoTRIgine (LaMICtal) 100 mg tablet Indications: Epilepsy, generalized, convulsive (CMS-HCC) TAKE ONE TABLET BY MOUTH IN THE MORNING AND TAKE ONE TABLET BY MOUTH BEFORE BEDTIME 180 tablet 1 03/02/2023 04/27/2023 Discontinued (Reorder) Start: 03-02-2023 End: 04-27-2023 take 1 tablet by mouth in the morning lamoTRIgine (LaMICtal) 200 mg tablet Indications: Epilepsy, generalized, convulsive (CMS-HCC) TAKE ONE TABLET BY MOUTH IN THE MORNING AND ONE TABLET BEFORE BEDTIME 180 tablet 1 03/02/2023 04/27/2023 Discontinued (Reorder) levETIRAcetam 1000 mg oral tablet (20 sources) Start: 03-02-2023 End: 02-18-2025 take 2 tablets by mouth twice daily levETIRAcetam (KEPPRA) 1000 mg tablet Indications: Epilepsy, generalized, convulsive (CMS-HCC) , Juvenile absence epilepsy (CMS-HCC) Take 2 tablets by mouth twice daily 120 tablet 5 02/18/2025 Active Start: 06-14-2017 take 2 tablets by mo [facility] every twelve hours Levetiracetam (Keppra) 1,000 mg Tablet Active 2000 MG PO Q12H June 14, 2017 12:00am medroxyPROGESTERone acetate 10 mg oral tablet (3 sources) Progestin Start: 05-23-2024 End: 06-02-2024 medroxyPROGESTERone (Provera) 10 MG tablet Indications: Abnormal uterine bleeding Take 1 tablet (10 mg) by mouth Daily for 7 days Start 7 days prior to menstrual cycle 7 tablet 05/23/2024 06/02/2024 Discontinued (Therapy completed) midazolam 5 mg/ml injectable solution (20 sources) Benzodiazepine Start: 06-14-2024 midazolam (CLIF SED) 5 mg/mL injection Indications: Epilepsy, generalized, convulsive (CMS-HCC) Use FRANCESCO unit and give 0.5ml intranasally at onset of aura, staring spell or seizure greater than 5 mins 2 mL 2 06/14/2024 Active Start: 03-25-2022 End: 05-29-2024 midazolam, PF, (VERSED) 5 mg /mL solution Indications: Epilepsy, generalized, convulsive (CMS-HCC) Give 2.5mg intranasally at onset of aura, staring spell, or seizure greater than 5 minutes. 2 mL 5 05/29/2024 Active Multiple Vitamins-Minerals (Multivitamin Women) tablet (3 sources) Multiple Vitamins-Minerals (Multivitamin Women) tablet Orally Active xoyxqjho-asj-lbnrojg fumarate (MULTI VITAMIN) 9 mg iron/15 mL liquid (11 sources) zyytxdms-kwg-tbo john fumarate (MULTI VITAMIN) 9 mg iron/15 mL liquid Active perampanel 12 mg oral tablet (20 sources) Noncompetitive AMPA Glutamate Receptor Antagonist Start: 2022 End: 2023 take 1 tablet by mouth in the morning perampaneL (FYCOMPA) 12 mg tablet Indications: Epilepsy, generalized, convulsive (CMS-HCC) TAKE 1 TABLET BY MOUTH IN THE MORNING 30 tablet 5 12/13/2023 Active Start: 07-19-2023 End: 05-29-2024 take 1 tablet by mouth once daily perampaneL (FYCOMPA) 2 mg tablet Indications: Juvenile absence epilepsy (CMS-HCC) TAKE 1 TABLET BY MOUTH ONCE DAILY IN ADDITION TO 10 MG TABLET TO EQUAL 12 MG DAILY 30 tablet 5 07/19/2023 05/29/2024 Discontinued (Dose adjustment) Start: 07-19-2023 End: 05-29-2024 perampaneL (FYCOMPA) 10 mg t ablet Indications: Epilepsy, generalized, convulsive (CMS-HCC) TAKE 1 TABLET BY MOUTH AT NIGHT ALONG WITH 2MG TAB TO EQUAL 12MG 30 tablet 5 07/19/2023 05/29/2024 Discontinued (Dose adjustment) Start: 03-02-2023 End: 04-27-2023 take 1 tablet by mouth once daily perampaneL (FYCOMPA) 2 mg tablet Indications: Juvenile absence epilepsy (CMS-HCC) TAKE ONE TABLET BY MOUTH ONE TIME A DAY. TAKE ADDITION TO 10MG TABLET TO EQUAL 12MG DAILY 90 tablet 3 03/02/2023 04/27/2023 Discontinued (Reorder) Start: 03-02-2023 End: 04-27-2023 take 1 tablet by mouth once daily perampaneL (FYCOMPA) 10 mg tablet Indications: Epilepsy, generalized, convulsive (CMS-HCC) TAKE ONE TABLET BY MOUTH NIGHTLY - TAKE ALONG WITH 2MG TABLET TO EQUAL 12MG NIGHTLY 90 tablet 1 03/02/2023 04/27/2023 Discontinued (Reorder) topiramate 100 mg oral table t (1 source) Start: 03-02-2018 Topiramate (To pamax) 100 mg Tablet Active 150 MG PO Twice daily March 02, 2018 12:00am Completed/Discontinued Medications Medication Drug Class(es) Dates Sig (Normalized) Sig (Original) Iferfyla-Bqmu-Wd-C alcium-Mins (Women's One Daily) 18 mg iron-400 mcg-500 mg Ca Tablet (1 source) Start: 06-14-2017 End: 03-02-2018 take 1 tablet by mouth once daily Fiozguoa-Uwtx-Ud-Ca lcium-Mins (Women's One Daily) 18 mg iron-400 mcg-500 mg Ca Tablet Discontinued 1 TAB PO Daily June 14, 2017 12:00am March 02, 2018 6:24pm Problems Active Problems Problem Classification Problem Date Documented Date Episodic/Chronic Acute and chronic tonsillitis (6 sources) Chronic tonsillitis; Translations: [Chronic tonsillitis] Onset: 05-17-2024 05-17-2024 Chronic Epilepsy; convulsions (20 sources) Generalized idiopathic epilepsy and epileptic syndromes, not intractable, without status epilepticus; Translations: [Partial seizure evolving to secondary generalized seizure] Onset: 03-29-2018 05-17-2024 Chronic Joint disorders and dislocations; trauma-related (3 sources) Patellofemoral syndrome of left knee; Translations: [Patellofemoral disorders, left knee] Onset: 05-17-2024 05-17-2024 Chronic Unclassified (1 source) Absence epileptic syndrome, not intractable, without status epilepticus; Translations: [Absence epileptic syndrome, not intractable, without status epilepticus] Onset: 06-29-2022 Past or Other Problems Problem Classification Problem Date Documented Da te Episodic/Chronic Contraceptive and procreative management (2 sources) Patient encounter status; Translations: [Encounter for surveillance of implantable subdermal contraceptive] 06-02-2024 Episodic Epilepsy; convulsions (5 sources) Seizure; Translations: [Unspecified convulsions] Onset: 05-17-2024 06-14-2017 Episodic Epilepsy; convulsions (1 source) Epilepsy; convulsions 09-04-2024 Mood disorders (20 sources) Mood disorders Onset: 04-09-2022 Resolved: 05-29-2024 05-29-2024 Other upper respiratory disease (3 sources) Breath smells unpleasant; Translations: [Halitosis] Onset: 05-17-2024 05-17-2024 Episodic Results Test Name Value Interpretation Reference Range Facil ity Lamotrigine (Lamictal)on Lamotrigine (Lamictal) 9.9 ug/mL Normal 2.0-20.0 [facility] Comment on above: Order Comment: LAST DOSE 06-29-22 AT 0930 Result Comment: Dete ction Limit = 1.0 Performed at: [facility] [id number] Thermodynamics Professor: Deanne Brand MD, Phone: [phone] Performed By: #### L AMOT, LEV #### [facility] , Levetiracetam (Keppra)on levETIRAcetam [Mass/Vol] 41.1 ug/mL High 10.0-40.0 [facility] Comment on above: Order Comment: LAST DOSE 06-29-22 AT 0930 Result Comment: This test was developed and its performance characteristics determined by [facility]. It has not been cleared or approved by the Food and Drug Administration. Performed at: [facility] [id number] Thermodynamics Professor: Deanne Brand MD, Phone: [phone] PERFORMED BY: [place] [address] [place] [address] PATHOLOGIST BRIDGE INSTRUCTOR OANH DUMONT M.D. Performed By: #### L AMOT, LEV #### [facility] , [facility]ALTH[facility] 03-26-2019 [facility] HNO ID: [id number] Author: Maryjo Lorenz (Rt) Service: ? Author Type: Saxophone Player Type: [facility] Filed: 03/26/2019 9:52 AM Note Text: Radiology Service Progress Note PATIENT NAME: Yecenia Vora DATE OF SERVICE: March 26, 2019 TIME: 9:39 AM PATIENT IDENTITY VERIFICATION COMPLETED USING TWO (2) METHODS: Patient confirmed name verbally, Date of and Family member confirmed name verbally. PATIENT GENDER DATA: Female. status: : No status: NO. 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 TECHNIQUE: Head MRI without intravenous contrast: epilepsy protocol. MQ: [id number] COMPARISON: None. RESULT: Developmental: The brain is normally formed, including a normal pattern of sulcation and gyration. No polymicrogyria is identified. No cortical malformation is identified, including no heterotopia or focal cortical dysplasia. Hippocampi: The right and left hippocampi are approximately symmetric and within normal limits in size, signal and configuration. Infarction: None. Hemorrhage: None. Mass lesion: None. Brain volume: Within normal limits. Ventricles: The ventricles, sulci and cisterns are within normal limits. Vasculature: The major intracranial arterial flow voids appear intact. Other: The extracranial structures are within normal limits. IMPRESSION: No abnormality identified to suggest a specific cause or consequence of seizure. Java Portal Developer: PSCB Transcribe Date/Time: Mar 26 2019 12:54P Dictated by : JULIA HUMPHRIES MD This examination was interpreted and the report reviewed and electronically signed by: JULIA HUMPHRIES MD on Mar 26 2019 12:57PM EST [id number] Normal [facility] Vital Signs Date Time Vital Sign Value Performing Clinician Facility 06-02-2024 07:54-0400 Body height 170.2 cm Aniyah Joaquin MD, IBCLC Work Phone: [facility] 06-02-2024 07:54-0400 Body mass index (BMI) [Ratio] 29.41 kg/m2 Aniyah Joaquin MD, IBCLC Work Phone: [facility] 06-02-2024 07:54-0400 Body temperature 96.6 [degF] Aniyah Joaquin MD, IBCLC Work Phone: [facility] 06-02-2024 07:54-0400 Body weight 85.19 kg Aniyah Joaquin MD, IBCLC Work Phone: [facility] 06-02-2024 07:54-0400 Diastolic blood pressure 68 mm[Hg] Aniyah Joaquin MD, IBCLC Work Phone: [facility] 06-02-2024 07:54-0400 Heart rate 62 /min Aniyah Joaquin MD, IBCLC Work Phone: [facility] 06-02-2024 07:54-0400 SaO2% (BldA) [Mass fraction] 99 % Aniyah Joaquin MD, IBCLC Work Phone: [facility] 06-02-2024 07:54-0400 Systolic blood pressure 126 mm[Hg] Aniyah Joaquin MD, IBCLC Work Phone: [facility] 05-29-2024 14:21-0400 Body height 170.2 cm Ileana Batista MD Work Phone: [facility] 05-29-2024 14:21-0400 Body mass index (BMI) [Ratio] 29.63 kg/m2 Ileana Batista MD Work Phone: [facility] 05-29-2024 14:21-0400 Body weight 85.82 kg Ileana Batista MD Work Phone: [facility] 05-29-2024 14:21-0400 Diastolic blood pressure 62 mm[Hg] Ileana Batista MD Work Phone: [facility] 05-29-2024 14:21-0400 Heart rate 62 /min Ileana Batista MD Work Phone: [facility] 05-29-2024 14:21-0400 Systolic blood pressure 118 mm[Hg] Ileana Batista MD Work Phone: [facility] Encounters Encounter Date Encounter Type Care Provider Facility Start: 03-30-2025 End: 03-30-2025 Refill Ileana Batista MD Work Phone: [facility] Comment on above: Epilepsy, generalize d, convulsive (CMS-HCC) Start: 02-19-2025 End: 02-19-2025 Refill Ileana Batista MD Work Phone: [facility] Comment on above: Epilepsy, generalize d, convulsive (CMS-HCC) Start: 02-18-2025 End: 02-18-2025 Refill Ileana Batista MD Work Phone: [facility] Comment on above: Epilepsy, generalize d, convulsive (CMS-HCC); Juvenile absence epilepsy (CMS-HCC) Start: 01-25-2025 End: 01-25-2025 Refill Ileana Batista MD Work Phone: [facility] Comment on above: Epilepsy, generalize d, convulsive (CMS-HCC); Juvenile absence epilepsy (CMS-HCC) Start: 09-28-2024 End: 09-28-2024 Refill Ileana Batista MD Work Phone: [facility] Comment on above: Epilepsy, generalize d, convulsive (CMS-HCC) Start: 09-03-2024 End: 09-04-2024 Refill Ileana Batista MD Work Phone: [facility] Comment on above: Epilepsy, generalize d, convulsive (CMS-HCC) Start: 06-09-2024 End: 06-09-2024 Refill Ileana Batista MD Work Phone: [facility] Comment on above: Epilepsy, generalize d, convulsive (CMS-HCC); Juvenile absence epilepsy (CMS-HCC) Start: 06-06-2024 End: 06-06-2024 [facility] above: clarify prescription Start: 06-04-2024 End: 06-04-2024 Refill Ileana Batista MD Work Phone: [facility] Comment on above: Epilepsy, generalize d, convulsive (CMS-HCC); Juvenile absence epilepsy (CMS-HCC) Start: 06-02-2024 End: 06-02-2024 Bamboo flowsheet Aniyah Joaquin MD, IBCLC Work Phone: [facility] Start: 06-02-2024 End: 06-02-2024 Bamboo flowsheet Aniyah Joaquin MD, IBCLC Work Phone: [facility] Start: 06-02-2024 End: 06-02-2024 Patient encounter procedure Aniyah Joaquin MD, IBCLC Work Phone: [facility] Comment on above: Encounter for remova l and reinsertion of Nexplanon (Primary Dx) Start: 06-02-2024 End: 06-02-2024 ambulatory ANIYAH IVANIA Not Available Start: 05-29-2024 End: 05-29-2024 Office outpatient visit 15 minutes Ileana Batista MD Work Phone: [facility] Comment on above: Epilepsy, generalize d, convulsive ([facility]-HCC) (Primary Dx) Start: 05-29-2024 End: 05-29-2024 ambulatory [facility] Start: 05-29-2024 End: 06-23-2024 Refill Ileana Batista MD Work Phone: [facility] Comment on above: Epilepsy, generalize d, convulsive ([facility]-HCC) Start: 05-25-2024 End: 05-25-2024 Refill Ileana Batista MD Work Phone: [facility] Comment on above: Epilepsy, generalize d, convulsive ([facility]-HCC) Start: 05-22-2024 End: 05-22-2024 ambulatory ANNETTA L CASE Not Available Start: 04-19-2024 End: 04-19-2024 Telephone encounter Michelle Alvarez [facility] Start: 03-30-2024 End: 03-30-2024 Telephone encounter Brittny Alvares [facility] Comment on above: waitlist reschedule Start: 03-21-2024 End: 03-21-2024 Refill Ileana Batista MD Work Phone: [facility] Comment on above: Epilepsy, generalize d, convulsive ([facility]-HCC) Start: 03-04-2024 End: 03-07-2024 Refill Ileana Batista MD Work Phone: [facility] Comment on above: Epilepsy, generalize d, convulsive ([facility]-HCC) Start: 02-25-2024 End: 02-25-2024 Refill Ileana Batista MD Work Phone: [facility] Comment on above: Epilepsy, generalize d, convulsive ([facility]-HCC) Start: 12-22-2023 Refill Ileana Batista MD Work Phone: [facility] Comment on above: Epilepsy, generalize d, convulsive (CMS-HCC); Juvenile absence epilepsy ([facility]-HCC) Start: 12-14-2023 Telephone encounter Lexie Acosta [facility] Comment on above: Waitlist Maintenance Start: 12-12-2023 Refill Ileana Batista MD Work Phone: [facility] Comment on above: Epilepsy, generalize d, convulsive ([facility]-HCC) Start: 12-03-2023 Telephone encounter Rachael metz [facility] Comment on above: reschedule Start: 11-10-2023 Refill Ileana Batista MD Work Phone: [facility] Comment on above: Epilepsy, generalize d, convulsive ([facility]-HCC) Start: 10-12-2023 Refill Lina Thapa Work Phone: [facility] Comment on above: Epilepsy, generalize d, convulsive ([facility]-HCC) Start: 04-27-2023 Telephone encounter Belinda Herron [facility] Comment on above: Medication Refill an d Questions Start: 06-29-2022 End: 06-29-2022 ambulatory Ileana Batista Facility:[facility] Start: 06-29-2022 End: 06-29-2022 Patient encounter procedure MD Allei Ramires Work Phone: [facility] Start: 04-06-2019 End: 04-06-2019 Emergency department patient visit FLORENCIA HELLERHARI JOSEPH Facility:[facility] Start: 02-16-2018 End: 02-17-2018 Ambulatory XXXX NONE Facility:CD:[id number] Start: 07-28-2017 End: 07-29-2017 Ambulatory DEFAULT PHYSICIAN Facility:[facility] Procedures Date Procedure Procedure Detail Performing Clinician Start: 05-29-2024 Adult depression screening assessment Ileana Batista MD Work Phone: Start: 05-17-2024 History of tonsillectomy Status post tonsillectomy Aniyah Joaquin MD, IBCLC Work Phone: Start: 04-09-2022 Adult depression screening assessment Belinda Herron Plan of Treatment Date Care Activity Detail Author Start: 03-02-2028 DTaP,Tdap and Td Vaccines (8 - Td or Tdap) DTaP,Tdap and Td Vaccines (8 - Td or Tdap) [facility] Start: 06-11-2025 Influenza vaccination Influenza Vacc ine [facility] Start: 05-29-2025 Adult BMI Screening Adult BMI Screen ing [facility] Start: 05-29-2025 Depression Screening Depression Scre ening [facility] Start: 05-29-2025 Tobacco Screening Tobacco Screening [facility] Start: 04-10-2025 DTaP,Tdap and Td Vaccines (7 - Td or Tdap) DTaP,Tdap and Td Vaccines (7 - Td or Tdap) [facility] Start: 06-11-2024 COVID-19 Vaccine ( season) COVID-19 Vaccine ( season) [facility] Start: 06-11-2024 COVID-19 Vaccine ( season) COVID-19 Vaccine ( season) [facility] Start: 06-11-2024 Influenza vaccination [facility] Start: 06-02-2024 End: 06-02-2024 Patient encounter procedure 06/02/2024 8:00 AM EDT Office Visit [facility] [address] [place] [phone] Aniyah Joaquin MD, IBCLC [address] [place] [address] Arrived [facility] Comment on above: Arrived Start: 05-29-2024 End: 05-29-2024 Patient encounter procedure [facility] Start: 11-15-2023 End: 11-15-2023 Patient encounter procedure 11/15/2023 3:30 PM EST Office Visit [facility] [address] [place] [phone] Ileana Batista MD [address] [place] [address], [address] [place] [phone] [facility] Start: 06-11-2023 COVID-19 Vaccine ( season) COVID-19 Vaccine ( season) [facility] Start: 06-11-2023 Influenza vaccination Influenza Vacc ine [facility] Start: 04-09-2023 Adult BMI Screening Adult BMI Screen ing [facility] Start: 04-09-2023 Depression Screening Depression Scre ening [facility] Start: 04-09-2023 Tobacco Screening Tobacco Screening [facility] Start: 06-29-2022 Lamotrigine measurement [facility] Work Phone: Start: 06-29-2022 Measurement of substance [facility] Work Phone: Start: 2017 Screening for malign ant neoplasm of cervix Pap Smear [facility] Start: 2014 Adult BMI Follow Up Plan Adult BMI Follow Up Plan [facility] Start: 2008 Tobacco Screening Tobacco Screening [facility] Lamotrigine measurement [facility] Work Phone: Measurement of substance [facility] Work Phone: Immunizations Immunization Date Immunization Notes Care Provider Moises kinney 01-01-2023 tuberculin skin test ; purified protein derivative solution, intradermal Aniyah Joaquin MD, IBCLC Work Phone: [facility] 12-22-2022 tuberculin skin test ; purified protein derivative solution, intradermal Aniyah Joaquin MD, IBCLC Work Phone: [facility] 08-18-2022 influenza, injectabl e, quadrivalent, preservative free Aniyah Joaquin MD, IBCLC Work Phone: [facility] 08-18-2022 influenza virus vacc ine, unspecified formulation Ileana Batista MD Work Phone: [facility] 07-26-2021 influenza, injectabl e, quadrivalent, preservative free Aniyah Joaquin MD, IBCLC Work Phone: [facility] 07-26-2021 influenza virus vacc ine, unspecified formulation Belinda Herron [facility] 08-29-2020 varicella virus vaccine Donald Joaquin MD, IBCLC Work Phone: [facility] 08-01-2020 varicella virus vaccine Donald Joaquin MD, IBCLC Work Phone: [facility] [facility] 03-02-2018 tetanus toxoid, redu lenora diphtheria toxoid, and acellular pertussis vaccine, adsorbed MD Allie Ramires Work Phone: [facility] 04-10-2015 meningococcal polysaccharide (groups A, C, Y and W-135) diphtheria toxoid conjugate vaccine (MCV4P) Aniyah Joaquin MD, IBCLC Work Phone: [facility] 04-10-2015 tetanus toxoid, redu lenora diphtheria toxoid, and acellular pertussis vaccine, adsorbed Aniyah Joaquin MD, IBCLC Work Phone: [facility] 2001 diphtheria, tetanus toxoids and acellular pertussis vaccine, unspecified formulation Aniyah Joaquin MD, IBCLC Work Phone: [facility] 2001 measles, mumps and rubella virus vaccine Aniyah Joaquin MD, IBCLC Work Phone: [facility] 2001 poliovirus vaccine, unspecified formulation Aniyah Joaquin MD, IBCLC Work Phone: [facility] 07-15-1998 diphtheria, tetanus toxoids and acellular pertussis vaccine, unspecified formulation Aniyah Joaquin MD, IBCLC Work Phone: [facility] 07-15-1998 haemophilus influenz ae type b vaccine, conjugate unspecified formulation Aniyah Joaquin MD, IBCLC Work Phone: [facility] 12-24-1997 measles, mumps and rubella virus vaccine Aniyah Joaquin MD, IBCLC Work Phone: [facility] 07-10-1997 diphtheria, tetanus toxoids and acellular pertussis vaccine, unspecified formulation Aniyah Joaquin MD, IBCLC Work Phone: [facility] 07-10-1997 haemophilus influenz ae type b vaccine, conjugate unspecified formulation Aniyah Joaquin MD, IBCLC Work Phone: [facility] 07-10-1997 hepatitis B vaccine, adult dosage Aniyah Joaquin MD, IBCLC Work Phone: [facility] 07-10-1997 poliovirus vaccine, unspecified formulation Aniyah Joaquin MD, IBCLC Work Phone: [facility] 05-01-1997 diphtheria, tetanus toxoids and acellular pertussis vaccine, unspecified formulation Aniyah Joaquin MD, IBCLC Work Phone: [facility] 05-01-1997 haemophilus influenz ae type b vaccine, conjugate unspecified formulation Aniyah Joaquin MD, IBCLC Work Phone: [facility] 05-01-1997 poliovirus vaccine, unspecified formulation Aniyah Joaquin MD, IBCLC Work Phone: [facility] 02-26-1997 diphtheria, tetanus toxoids and acellular pertussis vaccine, unspecified formulation Aniyah Joaquin MD, IBCLC Work Phone: [facility] 02-26-1997 haemophilus influenz ae type b vaccine, conjugate unspecified formulation Aniyah Joaquin MD, IBCLC Work Phone: [facility] 02-26-1997 poliovirus vaccine, unspecified formulation Aniyah Joaquin MD, IBCLC Work Phone: [facility] 01-19-1997 hepatitis B vaccine, adult dosage Aniyah Joaquin MD, IBCLC Work Phone: [facility] 1996 hepatitis B vaccine, adult dosage Aniyah Joaquin MD, IBCLC Work Phone: [facility] Payers Date Payer Category Payer Blue Cross Blue [facility] - O ANTHEM [id number] 2022 Unknown [id number] 2022 Unknown [id number] 2019 Unknown 2018 Self-pay 1996 Unknown [id number] 1996 Unknown [id number] 1996 Unknown [id number] 1996 Unknown [id number] Unknown [facility] [id number] Unknown [facility] [employer] [id number] Unknown HCAP/HFA/FAP Active [id number] Unknown [id number] Social History Date Type Detail Facility Start: 03-02-2018 End: 03-29-2018 Tobacco smoking status NHIS Never smoked tobacco (finding) [facility] Start: 1995 Sex Assigned At Female [facility] Start: 03-29-2018 End: 03-22-2024 Tobacco use and exposure Smokeless tobacco non-user [facility] Start: 05-22-2024 End: 06-02-2024 Alcoholic beverage intake Current drinker of alcohol (finding) [facility] Start: 10-30-2020 End: 05-22-2024 History of Social function [facility] Start: 10-30-2020 End: 05-22-2024 Tobacco use panel [facility] Start: 1995 Sex assigned at Not on file P [facility] Start: 12-23-2022 Gender identity Identifies as female gender (finding) [facility] Start: 04-09-2022 End: 05-29-2024 Alcoholic beverage intake Ex-drinker (finding) [facility] Adolescent depressio n screening assessment 0 [facility] Start: 05-29-2024 Alcohol Comment ss [facility] Start: 02-11-2018 Sex Female (finding) [facility] Clinical Notes 12-08-2020 to 06-06-2024 Telephone Encounter - Hannah Jarvis - 06/06/2024 3:01 PM EDTTelephone Encounter - Emily Hurt RN - 06/06/2024 3:01 PM EDTTelephone Encounter - Hannah Matheus - 06/06/2024 3:01 PM EDT Note Date & Type Note Facility 06-06-2024 Miscellaneous Notes Pharmacy calling to clarify prescription Pharmacy name: [facility] Pharmacy phone number: [phone] Pharmacy contact name: Crystal Medication: midazolam, PF, (VERSED) 5 mg/mL solution Information needed: prescription is for injection and directions are for intranasally (Place note here to provider from pharmacy if need be) RN spoke with the pharmacy. She states she is not familiar with the medication. The last time a prescription was sent into [facility] 2 years ago. Crystal states she will call them to see how they filled it. RN told her this prescription has always been written this way. documented in this encounter [facility] 06-06-2024 Telephone encounter Note Pharmacy calling to clarify prescription Pharmacy name: [facility] Pharmacy phone number: [phone] Pharmacy contact name: Crystal Medication: midazolam, PF, (VERSED) 5 mg/mL solution Information needed: prescription is for injection and directions are for intranasally (Place note here to provider from pharmacy if need be) [facility] 06-06-2024 Telephone encounter Note RN spoke with the pharmacy. She states she is not familiar with the medication. The last time a prescription was sent into [facility] 2 years ago. Lucero states she will call them to see how they filled it. RN told her this prescription has always been written this way. [facility] 06-02-2024 History of Presen t illness Narrative Images from the original note were not included. Pt is here for nexplanon removal and reinsertion SUBJECTIVE: History Provided by: patient History of Present Illness Previous nexplanon was placed about 3 years ago. No complaints. Past medical history, allergies, surgical history, family history, and social history were reviewed. Current Outpatient Medications Medication Instructions etonogestrel-eluting (Nexplanon) 68 mg contraceptive implant as directed Subcutaneous Fycompa 12 MG tablet 1 tablet, Oral, Every morning lamoTRIgine (LaMICtal) 100 MG tablet TAKE 1 TABLET BY MOUTH IN THE MORNING AND 1 TABLET AT BEDTIME lamoTRIgine (LaMICtal) 200 MG tablet TAKE 1 TABLET BY MOUTH IN THE MORNING AND 1 TAB BEFORE BEDTIME levETIRAcetam (Keppra) 1000 MG tablet 2 tablets, Oral, 2 times daily Multiple Vitamins-Minerals (Multivitamin Women) tablet Orally OBJECTIVE: BP 126/68 Pulse 62 Temp 96.6 F Ht 5' 7 Wt 187 lb 12.8 oz SpO2 99% BMI 29.41 kg/m Physical Exam Constitutional: General: She is not in acute distress. Appearance: Normal appearance. She is not ill-appearing. Eyes: General: No scleral icterus. Conjunctiva/sclera: Conjunctivae normal. Pulmonary: Effort: Pulmonary effort is normal. No respiratory distress. Musculoskeletal: General: No deformity. Normal range of motion. Skin: General: Skin is warm and dry. Comments: Nexplanon palpable in left upper arm inferior to bicipital groove Neurological: General: No focal deficit present. Mental Status: She is alert. Motor: Motor function is intact. Gait: Gait is intact. Psychiatric: Mood and Affect: Mood normal. Behavior: Behavior normal. PROCEDURE: Nexplanon Removal and Reinsertion After discussing the risks and indications for the device/procedure, informed consent was obtained from the patient. The Nexplanon device was palpated in the left arm 2cm below the bicipital groove. Incision site was marked with a surgical marker at the distal end of the palpated device. The insertion point was cleaned with alcohol and anesthetized with lidocaine 2% with epinephrine. After anesthesia was confirmed, The area was prepped in a sterile fashion with Betadine scrub. Using a scalpel, a small longitudinal incision was made at the end of device while applying slight pressure on the contralateral end of the device. Hemostats were used to grab the visualized end and the device was easily removed. Through the existing incision, The trochanter of the auto job estimator was inserted into the skin at an angle. Once completely inserted, the auto job estimator was leveled and advanced horizontally along the subdermal space. Once fully advanced, the Nexplanon device was deployed and the auto job estimator removed. Minor bleeding was present, controlled with hemostasis. The incision site was covered with 3 steri strips. The patient and I were able to palpate the device in the appropriate location in the left arm. The steri strips were then wrapped in a soft bandage. Patient was advised to keep the area dry and the bandage on for 24 hours. Afterwards, bandage may be removed and allow the steristrips to fall off on their own. Patient may use ibuprofen and/or ice for soreness or bruising. Reviewed return precautions DIAGNOSES: ICD-10-CM 1. Encounter for removal and reinsertion of Nexplanon Z30.46 etonogestrel-eluting 68 mg contraceptive implant 1 each ASSESSMENT AND PLAN: 1. Encounter for removal and reinsertion of Nexplanon Procedure visit only. See procedure note above. Encouraged backup method of contraception for 7 days. Follow up with [facility]il[facility] for chronic/ongoing concerns. - etonogestrel-eluting 68 mg contraceptive implant 1 each Aniyah Joaquin MD, IBCLC [facility] documented in this encounter [facility] 05-29-2024 Miscellaneous Notes Sent back for clarification from pharmacy. Could you please check with Yecenia if she uses Nayzlam or Midazolam injection via an atomizer and syringe? If it's Nayzlam, then we should change the prescription to that. Thanks RN called and left VM for patient to clarify which medication she was previously getting Patient called back stating that she usually uses midazolam. Patient states that her regular [facility] pharmacy in [place] does not carry the midazolam. Left voicemail for patient to inform us whether the Midazolam injection uses an atomizer or syringe? Patient returned call and states that Midazolam injection uses an atomizer. Could you please place the correct order for Midazolam spray with atomizer. Thanks Script pended for review and signature documented in this encounter [facility] 05-29-2024 Telephone encounter Note Sent back for clarification from pharmacy. Could you please check with Yecenia if she uses Nayzlam or Midazolam injection via an atomizer and syringe? If it's Nayzlam, then we should change the prescription to that. Thanks [facility] 05-29-2024 Telephone encounter Note RN called and left VM for patient to clarify which medication she was previously getting [facility] 05-29-2024 Telephone encounter Note Patient called back stating that she usually uses midazolam. Patient states that her regular [facility] pharmacy in [place] does not carry the midazolam. [facility] 05-29-2024 Telephone encounter Note Left voicemail for patient to inform us whether the Midazolam injection uses an atomizer or syringe? [facility] 05-29-2024 Telephone encounter Note Patient returned call and states that Midazolam injection uses an atomizer. [facility] 05-29-2024 Telephone encounter Note Could you please place the correct order for Midazolam spray with atomizer. Thanks [facility] 05-29-2024 Telephone encounter Note Script pended for review and signature [facility] 05-29-2024 History of Presen t illness Narrative Images from the original note were not included. [address] [facility] [id number] Patient: Yecenia Vora Date of : 1995 Encounter Date: 05/29/2024 Patient Care Team: Allie Ramires MD as PCP - General History of Present Illness and Interval History: Yecenia is a 28 y.o. right handed woman presenting for follow-up. She was last seen in the clinic on 04/09/2022. On that visit, she was continued on lamotrigine 300 mg twice daily, levetiracetam 2000 mg twice daily and Fycompa 12 mg daily. We ordered a 6 hours EEG to evaluate for presence of subclinical seizures. Lamictal and Keppra levels were drawn. Afterwards the EEG study was completed on 07/13/2022, and showed evidence of generalized frontally dominant spike-polyspike slow wave discharges and a single brief electrographic seizure with subtle clinical signs. Lamotrigine level was drawn and was normal, and Keppra level was mildly high. In the interim, she has been free of generalized tonic-clonic seizures. She still experiences brief staring spells up using midazolam nasal spray about once every 4 months for cluster of brief staring spells, and it works well for her. Otherwise, she continues to be compliant to her AED regimen, and does not miss a dose. She denies any adverse effects with the medications, in particular mood/cognitive side effects. 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 She denies any stress at work. She sleeps about 6 to 7 hours each night, and states that she is a light sleeper. She continues to drive with no problems. She denies smoking or recreational drug use. She drinks alcohol socially, about 1 to 2/week she drinks 1 cup of coffee every day. She also runs and works out. In the past, she also underwent 2nd opinion at [facility] in March of 2019. During this time she had an MRI brain temporal lobe protocol which was negative and unremarkable. It was recommended to her to attempt to try ethosuximide or valproic acid. EVALUATION AND TREATMENTS SO FAR: She was started on Keppra by , her first neurologist. She was started on 1000 BID after her first seizure. The dose was later increased to current dose of 2000 mg BID. After her third seizure, she was started on Oxcarbazepine [address] head (may after 3 falls)- Normal (no report/images available) MRI Brain: Normal (no report/images available) MRI brain without IV contrast 03/26/2019: No abnormality identified to suggest a specific cause or consequence of seizure 6-Hour video EEG (07-13-2022): EEG Classification: This EEG was obtained while awake and asleep and is abnormal due to: 1) Generalized frontally dominant spike/polyspike-slow wave discharges. 2) One brief electrographic seizure with subtle clinical signs 6-Hour video EEG (09-20-2020): This study is abnormal. 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 Further investigation may be needed to verify possible independent focal epileptogenic mechanism in the right temporopatietal region. 3-Day Ambulatory EEG (Aug 20): Generalized 3.5 Hz Joe and wave discharges. No seizures were recorded. 3-day Ambulatory EEG ( 05/17/2018-05/20/2018): Impression: This EEG was obtained while awake and asleep and is abnormal due to: 1) Generalized frontally dominant spike/polyspike-slow wave discharges. 2) Frequent brief subclinical electrographic seizures 3) Single generalized motor seizure 4) Dyshormia. Clinical Correlation: This 3-day ambulatory EEG recording is abnormal, indicative of diffusely increased epileptogenicity, in a pattern consistent with generalized epilepsy. Frequent subclinical electrographic seizures were recorded along with single typical generalized motor seizure. Laboratory data: Labs/Date Lamictal (-13) Levetiracetam (-) 06/29/2022 9.9 41.1 08/28/2019 9.2 28.9 01/14/2019 9.4 12/03/2018 15.5 08/20/18 6.1 03/22/2018 37.3 Family History: Mother had seizures and was treated with Dilantin. She describes pain induced seizures. Her last seizure was 20 yrs ago. Mother's grandmother had seizures (staring spells) AED Side effects: Significant memory problems with Topamax. No mood side effects. Compliance: Good. Allergies: Patient has no known allergies. Past Medical, Family, Surgical, and Social History Update: The following portions of the patient's history were reviewed and updated as appropriate: allergies, current medications, past family history, past medical history, past social history, past surgical history and problem list. Past Medical History: Diagnosis Date Seizures ([facility]) No family history on file. No past surgical history on file. Current Outpatient Medications Medication Sig Dispense Refill lamoTRIgine (LaMICtal) 100 mg tablet TAKE 1 TABLET BY MOUTH IN THE MORNING AND 1 TABLET AT BEDTIME 60 tablet 5 lamoTRIgine (LaMICtal) 200 mg tablet TAKE 1 TABLET BY MOUTH TWICE DAILY IN THE MORNING AND 1 TAB AT BEDTIME 60 tablet 5 levETIRAcetam (KEPPRA) 1000 mg tablet Take 2 tablets by mouth twice daily 120 tablet 5 midazolam, PF, (VERSED) 5 mg/mL solution Give 2.5mg intranasally at onset of aura, staring spell, or seizure greater than 5 minutes. 4 mL 3 perampaneL (FYCOMPA) 10 mg tablet TAKE 1 TABLET BY MOUTH AT NIGHT ALONG WITH 2MG TAB TO EQUAL 12MG 30 tablet 5 perampaneL (FYCOMPA) 12 mg tablet TAKE 1 TABLET BY MOUTH IN THE MORNING 30 tablet 5 perampaneL (FYCOMPA) 2 mg tablet TAKE 1 TABLET BY MOUTH ONCE DAILY IN ADDITION TO 10 MG TABLET TO EQUAL 12 MG DAILY 30 tablet 5 No current facility-administered medications for this visit. (All medications reviewed and updated by provider since last office visit or hospitalization) Tobacco History: Social History Tobacco Use Smoking Status Never Smokeless Tobacco Never (If patient a smoker, smoking cessation counseling offered) Social History: Social History Substance and Sexual Activity Alcohol Use Not Currently Review of Systems: Review of Systems Constitutional: Negative for diaphoresis, fatigue and fever. HENT: Negative for sinus pain, sneezing and trouble swallowing. Eyes: Negative for photophobia and visual disturbance. Respiratory: Negative for apnea, cough, choking, chest tightness, shortness of breath and wheezing. Cardiovascular: Negative for chest pain and palpitations. Gastrointestinal: Negative for abdominal distention, abdominal pain, constipation, diarrhea, nausea and vomiting. Musculoskeletal: Negative for arthralgias, gait problem, joint swelling, myalgias, neck pain and neck stiffness. Neurological: Positive for seizures. Negative for dizziness, tremors, syncope, facial asymmetry, speech difficulty, weakness, light-headedness, numbness and headaches. Psychiatric/Behavioral: Negative for agitation. Physical Exam: Vitals: There were no vitals filed for this visit. Neurological Physical Exam: Constitutional: No acute distress. Head: Size/Trauma: normocephalic. No tenderness over trapezii, paraspinous cervical muscles, occipital nerves, temples or face. Neck: Appearance/Palpation/Auscultati on: supple and no carotid bruits. Lungs: Auscultation: normal breath sounds. Heart: Rate And Rhythm: RRR. Murmurs: none. Skin: No rashes or bruising. Extremities: no pedal edema. Mental Status: Orientation oriented to person, place, problem, and time. Mood/Affect: appropriate mood and affect. Attention Span/Concentration: three part command intact. Language: can appropriately name objects and has spontaneous speech. Memory: recent memory intact and remote memory intact. Fund of Knowledge: current events and past history. Speech fluent without significant dysarthria or aphasia, Cranial Nerves: CN II Right: pupil normal size and reactive to light, fundoscopic exam grossly normal and visual acuity intact to confrontation. CN II Left: pupil normal size and reactive to light, and fundoscopic exam grossly normal and visual acuity intact to confrontation. Pupils 4-3 mm OU CN III, IV, : no nystagmus, extraocular muscle strength normal, and normal ocular motility pursuits. CN V Right: normal sensation. CN V Left: normal sensation. CN VII Right: normal facial expression. CN VII Left: normal facial expression. CN VIII Right: normal hearing to finger rub. CN VIII Left: normal hearing to finger rub. CN IX, X: normal palatal movement. CN XI Right: normal trapezii. CN XI Left: normal trapezii. CN XII: tongue protrudes midline. Motor Exam: Right Upper Extremity: no drift, normal bulk and tone. Left Upper Extremity: no drift, normal bulk and tone. Right Shoulder Strength: abduction 5/5. Left Shoulder Strength: abduction 5/5. Right Elbow Strength: flexion 5/5, and extension 5/5. Left Elbow Strength: flexion 5/5, and extension 5/5. Right Wrist: flexion 5/5, and extension 5/5. Left Wrist: flexion 5/5, and extension 5/5. Right Hand: hand active directory architect 5/5. Left Hand: hand active directory architect 5/5. Right Lower Extremity: no drift, normal bulk and tone. Left Lower Extremity: no drift, normal bulk and tone Right Hip: flexion 5/5. Left Hip: flexion 5/5. Right Knee: flexion 5/5 and extension 5/5. Left Knee: flexion 5/5 and extension 5/5. Right Ankle: plantar flexion 5/5 and dorsiflexion 5/5. Left Ankle: plantar flexion 5/5 and dorsiflexion 5/5. Reflexes: Right: biceps 2/4, triceps 2/4, brachial radialis 2/4, patellar 2/4, and achilles 2/4. Reflexes Left: biceps 2/4, triceps 2/4, brachial radialis 2/4, patellar 2/4, and achilles 2/4. Coordination: normal [id number], normal rapid alternating movements, normal circular movements. Sensation: normal temperature, pin, vibration, joint position, and light touch; Romberg's test: Negative. Station and Gait: tandem gait normal, gait normal, and station normal. Assessment and Plan: There are no diagnoses linked to this encounter. Problem List None Assessment and plan Patient was counseled all questions answered. Potential diagnostic and therapeutic options were discussed. 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 Her seizures are well controlled on current regimen of AEDs, with good compliance and minimal side effects. There is no indication catamenial association to her seizures. Her neurological exam is unchanged. Plan: 1. We will continue Lamictal 300 mg b.i.d., Keppra 2 g b.i.d. and Fycompa to 12 mg 2. We will draw Lamictal and Keppra levels before next visit. 4. We discussed continuing using p.r.n. midazolam for seizures. But also advised that if she feels drowsy and sleepy with midazolam and her seizures are not well controlled to visit the emergency room for further seizure treatment 5. Counseled about the teratogenic effects of the AEDs, and potential changes in the regimen prior to conception, as well as need to take folic acid supplementation at that time. 5. Follow-up in 12 months, or earlier as needed Ileana Batista MD. Production Grip of Neurology and Sleep [facility] documented in this encounter [facility] 05-25-2024 Miscellaneous Notes This can be addressed at follow up appointment on Wednesday05/29/24. documented in this encounter [facility] 05-25-2024 Telephone encounter Note This can be addressed at follow up appointment on Wednesday05/29/24. [facility] 04-19-2024 Miscellaneous Notes Wait list reschedule. New, established, or hospital f/u: - est Provider: - Dr Batista Date(s) to move appointment to: - 04/20/24 Time slot amount: - 30 Patient is unable to make it d/t having to work documented in this encounter [facility] 04-19-2024 Telephone encounter Note Wait list reschedule. New, established, or hospital f/u: - est Provider: Elizabeth Batista Date(s) to move appointment to: - 04/20/24 Time slot amount: - 30 Patient is unable to make it d/t having to work [facility] 03-30-2024 Miscellaneous Notes Wait list reschedule. New, established, or hospital f/u: - Established Provider: - Date(s) to move appointment to: - 03/30/2024 Time slot amount: - 30 mins Patient states that she is unable to come today but would like to still be kept on the waitlist. documented in this encounter [facility] 03-30-2024 Telephone encounter Note Wait list reschedule. New, established, or hospital f/u: - Established Provider: - Date(s) to move appointment to: - 03/30/2024 Time slot amount: - 30 mins Patient states that she is unable to come today but would like to still be kept on the waitlist. [facility] 12-14-2023 Miscellaneous Notes Wait List Maintenance: New, established, or hospital f/u: - Established Patient Provider: Elizabeth Batista at [facility] Date(s) to move appointment to: - Thursday, December 14, 2023 at 3:00p Time slot amount: - 30 Minute Established Patient *Please reschedule if still available. documented in this encounter [facility] 12-14-2023 Telephone encounter Note Wait List Maintenance: New, established, or hospital f/u: - Established Patient Provider: - Dr Batista at [facility] Date(s) to move appointment to: - Thursday, December 14, 2023 at 3:00p Time slot amount: - 30 Minute Established Patient *Please reschedule if still available. [facility] 12-03-2023 Miscellaneous Notes Patient called in to reschedule appointment but provider Dr batista schedule is not available with time slot. Last office visit 04/09/2022 follow up 12 months. Please advise Patient will have to go on waitlist for appointment and make sure keeps this appointment once she gets one since he is booking so far out as to not delay any refills if it is too long from when she was seen last Imaging Aide contacted patient and informed them of the message below. Patient stated understanding and will contact our clinic periodically to see if anything has changed with Dr. Batista's waitlist - marketing underwriter also reassured her that we will contact her the moment an appointment becomes available. DELORIS. documented in this encounter [facility] 12-03-2023 Telephone encounter Note Patient called in to reschedule appointment but provider Dr batista schedule is not available with time slot. Last office visit 04/09/2022 follow up 12 months. Please advise [facility] 12-03-2023 Telephone encounter Note Patient will have to go on waitlist for appointment and make sure keeps this appointment once she gets one since he is booking so far out as to not delay any refills if it is too long from when [facility] Telephone encounter Note Imaging Aide contacted patient and informed them of the message below. Patient stated understanding and will contact our clinic periodically to see if anything has changed with Dr. Batista's waitlist - marketing underwriter also reassured her that we will contact her the moment an appointment becomes available. ALEXEII. [facility] Miscellaneous Notes Received refill request for Fycompa via [employer] Last refill was e-scribed on 09/14/2023 1 refill Prescription pended to for approval and signature. Next follow up is 11/15/2023 documented in this encounter [facility]23 Telephone encounter Note Received refill request for Fycompa via [employer] Last refill was e-scribed on 09/14/2023 1 refill Prescription pended to for approval and signature. Next follow up is 11/15/2023 [facility] 04-27-2023 Miscellaneous Notes Medication Refill request: Medication Name and Strength: levETIRAcetam (KEPPRA) 1000 mg tablet Current dose & Frequency: TAKE TWO TABLETS BY MOUTH IN THE MORNING AND TAKE TWO TABLETS BY MOUTH BEFORE BEDTIME 30 day or 90 day supply preferred: 30 days Pharmacy Name: [address] Request was made by: Patient Please Advise. Patient is starting a new job and is requesting a 30 day refill be called in, and is also requesting 3 refills. Thank you so much. Refill request for Keppra 2,000mg BID verified in last progress note on 04/09/22. Pended to Dr. Hall, coverage for Dr. Batista, for review and signature Start date from last refill: 03/02/23 (requesting different pharmacy now) Next follow up: message sent to phone room to schedule 1 year follow up Will sign once an order is placed in my box,. Thanks. HL documented in this encounter [facility] 04-27-2023 Telephone encounter Note Medication Refill request: Medication Name and Strength: levETIRAcetam (KEPPRA) 1000 mg tablet Current dose & Frequency: TAKE TWO TABLETS BY MOUTH IN THE MORNING AND TAKE TWO TABLETS BY MOUTH BEFORE BEDTIME 30 day or 90 day supply preferred: 30 days Pharmacy Name: [facility] [address] [place] [address] Request was made by: Patient Please Advise. Patient is starting a new job and is requesting a 30 day refill be called in, and is also requesting 3 refills. Thank you so much. [facility] 04-27-2023 Telephone encounter Note Refill request for Keppra 2,000mg BID verified in last progress note on 04/09/22. Pended to Dr. Hall, coverage for Dr. Batista, for review and signature Start date from last refill: 03/02/23 (requesting different pharmacy now) Next follow up: message sent to phone room to schedule 1 year follow up [facility] 04-27-2023 Telephone encounter Note Will sign once an order is placed in my box,. Thanks. HL [facility] Work Phone: 12-08-2020 Note Patient Outreach ([facility]) YECENIA VORA ([id number]) 1995 F Date Time Provider Department 12/08/20 [facility] During your visit today, we recorded the following information about you: Allergies As of Date: 12/08/2020 (No Known Allergies) Date Reviewed: 04/28/2019 Reviewed by: Simin Alvarez) Joshua - Fully Assessed Order(s):SARS-COVID VACCINE 1ST DOSE APPT [[id number]] Order #: [id number] FUTURE Prescriptions as of 12/08/2020 Sig: FOLIC ACID 1 MG TABLET Take 3 tablets by mouth once * LAMOTRIGINE 200 MG TABLET Take 1 tablet by mouth twice * LAMOTRIGINE 100 MG TABLET Take 1 tablet by mouth twice * LEVETIRACETAM 1,000 MG TABLET Take 2 tablets by mouth twice* MIDAZOLAM 2.5 MG/0.5 ML SYR F* 2.5 mg/kg/dose by INTRANASAL * Problem List As Of Date 12/08/2020 Noted Resolved Generalized epilepsy (HCC) [G40.309] 02/14/2019 Encounter Status:Closed by MARCOS, PRODUSER on 12/11/20 [facility] Evaluation note No assessment inform ation available [facility] Work Phone: Evaluation note Diagnosis Encounter for removal and reinsertion of Nexplanon- Primary [facility] Diagnosis Epilepsy, generalized, 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 [facility] Diagnosis Epilepsy, generalized, 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 epilepsy [facility] Diagnosis Epilepsy, generalized, 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 [facility] Diagnosis Epilepsy, generalized, 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 [facility] Diagnosis Epilepsy, generalized, 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 epilepsy [facility] Diagnosis Epilepsy, generalized, convulsive (CMS-HCC)- Primary Generalized convulsive epilepsy without mention of intractable epilepsy [facility] Diagnosis Epilepsy, generalized, 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 epilepsy [facility] Diagnosis Epilepsy, generalized, 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 [facility] Diagnosis Epilepsy, generalized, 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 [facility] filedocumented in this encounter [facility] filedocumented in this encounter [facility] filedocumented in this encounter [facility] filedocumented in this encounter [facility] filedocumented in this encounter [facility] filedocumented in this encounter [facility] filedocumented in this [facility] Summary Purpose Family History No Family History Records FoundNo Family History Records FoundNo Family History Records FoundNo Family History Records FoundNo Family History Records FoundNo Family History Records FoundNo Family History Records FoundNo Family History Records Found Advance Directives Advance Directive Response Recorded Date/ Time Advance Directives No September 2:10pm Chief Complaint and Reason for Visit Chief Complaint See order Additional Source Comments INFORMATION SOURCE (unrecogn ized section and content) DATE CREATED AUTHOR 03/30/2018 [facility] DATE CREATED AUTHOR AUTHOR'S ORGANIZ ATION 04/05/2018 [facility] DATE CREATED AUTHOR AUTHOR'S ORGANIZ ATION 03/26/2019 [facility] DATE CREATED AUTHOR AUTHOR'S ORGANIZ ATION 10/31/2020 [facility] DATE CREATED AUTHOR AUTHOR'S ORGANIZ ATION 11/19/2021 [facility] DATE CREATED AUTHOR AUTHOR'S ORGANIZ ATION 07/12/2022 [facility] DATE CREATED AUTHOR AUTHOR'S ORGANIZ ATION 05/30/2024 [facility] DATE CREATED AUTHOR AUTHOR'S ORGANIZ ATION 06/04/2024 [facility] [employer] Care Teams (unrecognized sec tion and content) Team Status: Inactive Member Role Status Dates Allie Ramires MD Primary Care Provider Active Ileana Batista MD Attending Provider Active Team Status: Active Member Role Status Dates Allie Ramires MD Primary Care Provider Active Extra Hand Relationship Specialty Start Date End Date Allie Ramires MD [address] [id number] PCP - General Family Medicine 02/16/23 Annetta Aguillon NP [address] [place] [address] PCP - Shantell Faria 08/22/23 Extra Hand Relationship Specialty Start Date End Date Allie Ramires MD [address] [place] [address] PCP - General Family Medicine 02/16/23 Annetta Aguillon NP [address] [place] [address] PCP - [employer] 08/22/23 Extra Hand Relationship Specialty Start Date End Date Allie Ramires MD [address] [place] [address] PCP - General 03/29/18 Extra Hand Relationship Specialty Start Date End Date Allie Ramires MD [address] [place] [place] [address] PCP - General 03/29/18 Extra Hand Relationship Specialty Start Date End Date Allie Ramires MD [address] [place] [address] PCP - General 03/29/18 Extra Hand Relationship Specialty Start Date End Date Allie Ramires MD [address] [place] [address] PCP - General 03/29/18 Extra Hand Relationship Specialty Start Date End Date Allie Ramires MD [address] [place] [address] PCP - General 03/29/18 Extra Hand Relationship Specialty Start Date End Date Allie Ramires MD [address] [place] [address] PCP - General 03/29/18 Extra Hand Relationship Specialty Start Date End Date Allie Ramires MD [address] [place] [address] PCP - General 03/29/18 Extra Hand Relationship Specialty Start Date End Date Allie Ramires MD [address] [place] [address] PCP - General 03/29/18 Extra Hand Relationship Specialty Start Date End Date Allie Ramires MD [address] [place] [address] PCP - General 03/29/18 Extra Hand Relationship Specialty Start Date End Date Allie Ramires MD [address] [place] [address] PCP - General 03/29/18 Goals (unrecognized section and content) Goals may be documented in a n alternate sectionNot on filedocumented as of this encounterNot on filedocumented as of this encounterNot on filedocumented as of this encounterNot on filedocumented as of this encounterNot on filedocumented as of this encounterNot on filedocumented as of this encounterNot on filedocumented as of this encounterNot on filedocumented as of this encounterNot on filedocumented as of this encounterNot on filedocumented as of this encounterNot on filedocumented as of this encounterNot on filedocumented as of this encounterNot on filedocumented as of this encounterNot on filedocumented as of this encounterNot on filedocumented as of this encounterNot on filedocumented as of this encounterNot on filedocumented as of this encounterNot on filedocumented as of this encounterNot on filedocumented as of this encounterNot on filedocumented as of this encounterNot on filedocumented as of this encounterNot on filedocumented as of this encounterNot on filedocumented as of this encounterNot on filedocumented as of this encounter Reason for Visit (unrecogniz ed section and content) Reason Comments Med Refill Reason Onset Date Comments Medication Refill and Questions 04/27/2023 Reason Onset Date Comments waitlist reschedule 03/30/2024 Reason Onset Date Comments reschedule 12/03/2023 Reason Onset Date Comments Waitlist Maintenance 12/14/2023 Reason Onset Date Comments Med Refill 05/25/2024 Reason Comments Seizures Reason Onset Date Comments clarify prescription 06/06/2024 Reason Comments Med Change Request Reason Comments Med Refill FOR RECORDS PERTAINING TO PATIENTS WHO ARE OR HAVE BEEN ENROLLED IN A CHEMICAL DEPENDENCY/SUBSTANCEABUSE PROGRAM, SOME INFORMATION MAY BE OMITTED. This clinical summary was aggregated from multiple sources. Caution should be exercised in using it in the provision of clinical care. This summary normalizes information from multiple sources, and as a consequence, information in this document may materially change the coding, format and clinical context of patient data. In addition, data may be omitted in some cases. CLINICAL DECISIONS SHOULD BE BASED ON THE PRIMARY CLINICAL RECORDS. [facility] [employer] provides no warranty or guarantee of the accuracy or completeness of information in this document.
--- NOTE | 2025-05-27 22:31 | ED_ITS ---
HPI HPI - Head Injury General Chief complaint: Wound/Laceration Stated complaint: EPILEPTIC SEIZURE/ FACIAL CUTS Time Seen by Provider: 05/27/25 22:20 History of Present Illness HPI Narrative: This 29-year-old female presents for evaluation of several facial and head injuries and left index finger pain as well as abrasions to both knees and her right anterior wrist area after having a seizure. The patient has a history of epilepsy since 2016. She sees a neurologist at [facility] in [place]. She is compliant with her medications. She states she was on her porch this evening reading a book and apparently had a seizure. According to her she had c alled him requesting that he come home after she had gotten back in the house after an apparent seizure. She does not recall the events. The patient's states that it appears that she fell down some concrete stairs. She has multiple abrasions on her forehead including one 2 cm laceration just above her nose at the mid forehead area. She has some mild bruising and swelling over her nose with superficial abrasion of the bridge of her nose. She has abrasions on both knees and the right anterior distal forearm. She also has pain and bruising of the left index finger. The patient was not postictal by the time her got home from work. She denies any neck pain. She has no chest pain or shortness of breath. She states her last tetanus shot was in 2024 for a work requirement. Related Data Home Medications ?Medication ?Instructions ?Recorded ?Confirmed lamotrigine 100 mg tablet mg 05/27/25 lamotrigine 200 mg tablet mg 05/27/25 levetiracetam 1,000 mg tablet mg PO 05/27/25 Allergies Allergy/AdvReac Type Severity Reaction Status Date / Time No Known Drug Allergies Allergy Verified 05/27/25 22:22 Review of Systems ROS Status of ROS 10 or more systems reviewed and unremark able except as noted in history and below PFSH PFSH Social History Little interest or pleasure in doing things: not at all Feeling down, depressed, or hopeless: not at all Exam Narrative Exam Narrative: Vital signs and Nursing Notes reviewed: Patient is afebrile normal pulse, normal blood pressure, she is not hypoxic with pulse ox of 100% on room air General: Awake, alert, oriented, nontoxic, alert female, no respiratory distress, HEENT: Normocephalic, there is an approximately 2 cm laceration above the patient's nose with ecchymosis and superficial abrasions on the forehead, left zygoma and cheek area and the bridge of the nose, no septal hematoma noted, no active nasal bleeding noted, no dental injury noted, patient is able to open and close her mouth without difficulty. Normal occlusion of the mandible. Neck: Supple, no midline bony vertebral tenderness or step-off Chest: Lungs are clear to auscultation with good air entry, there is no wheezing rhonchi or rales appreciated no accessory muscle use, patient is speaking in complete sentences-no chest wall tenderness to palpation CVS: Regular rate and rhythm S1-S2, no murmurs rubs or gallops, pulses are brisk and equal bilaterally ABD: Soft, nondistended, nontender, no rebound guarding or rigidity, bowel sounds are normal, no pulsatile masses appreciated Extremities: Moving all extremities, superficial abrasion over both knees, full range of motion noted, superficial abrasion to the right anterior distal forearm with no bony tenderness. There is bruising and tenderness to the proximal phalanx of the left index finger. Skin: Normal in appearance abrasions noted to both knees, right forearm and face. Neuro: No focal deficits; patient is not postictal, speech is clear, clinical project coordinator strength is intact, upper and lower extremity strength and sensation is intact Constitutional Vital Signs, click to edit/add: Last Vital Signs Temp 98 F 05/27/25 22:18 Pulse 69 05/27/25 22:18 Resp 18 05/27/25 22:18 BP 126/82 05/27/25 22:18 Pulse Ox 98 05/27/25 23:03 O2 Del Method Room Air 05/27/25 23:03 Course Vital Signs Vital signs: Vital Signs Temperature 98 F 05/27/25 22:18 Pulse Rate 69 05/27/25 22:18 Respiratory Rate 18 05/27/25 22:18 Blood Pressure 126/82 05/27/25 22:18 Pulse Oximetry 100 05/27/25 22:18 Oxygen Delivery Method Room Air 05/27/25 22:18 Temperature 98 F 05/27/25 22:18 Pulse Rate 69 05/27/25 22:18 Respiratory Rate 18 05/27/25 22:18 Blood Pressure 126/82 05/27/25 22:18 Pulse Oximetry 98 05/27/25 23:03 Oxygen Delivery Method Room Air 05/27/25 23:03 MDM - Head Injury MDM Narrative Medical decision making narrative: This 29-year-old female with a history of epilepsy who is on 3 different seizure medications is brought to the emergency department by her . Patient was sitting on her patio reading a book when she had a seizure. She apparently fell down several concrete stairs striking her face, knees, right arm and left hand. She has multiple abrasions to her knees, her face specifically on the left side of her face with a 2 cm laceration above her nose, there is abrasion over her nose with some mild nasal tenderness. She had no neck pain or stiffness. She had abrasions of both knees with full range of motion. She had tenderness to the left index finger with some bruising at the distal proximal phalanx. She declined any blood work to be drawn. CT scan of the brain, facial bones and cervical spine was ordered. Her tetanus is up-to-date as a work requirement. She was medicated with Tylenol and a [place] for her pain. X-ray of the finger shows a nondisplaced fracture of the distal phalanx. She was placed in a finger splint with Rashaun wrap applied. Her abrasions were cleaned and dressed with bacitracin. The laceration on her forehead was closed with nine 5-0 Ethilon sutures. She has remained awake alert and oriented while in the emergency department. She was not postictal upon arrival. She called her to come home from work after her seizure and he states she was not postictal at that time either. She did not bite her tongue nor was she incontinent of urine. She denies any missed doses of her seizure medications. CT scan of the brain is negative for acute findings with intact right and left TMJs, intact globes, it does show left lower face soft tissue swelling with stranding overlying the body of the left mandible and left anterior face and left lateral soft tissue swelling overlying the left maxillary sinus and overlying left zygomatic arch with soft tissue swelling noted over the nasal ridge at the midline and is associated soft tissue laceration overlying the frontal bone at the midline. There was no acute facial bone fracture or dislocation. Intact globes intact nasal septum intact mandible. There was anatomic alignment of the cervical vertebrae's with no acute spine fracture or dislocation. The results of the CT scans were discussed with the patient and her . She was given a copy for her records. I suggested that she call her neurologist and get an appointment as she typically only sees her neurologist once a year. She states her last seizure was about 3 months ago. She may need a change in her medications or additional medications due to the increased seizure history. Patient is agreeable to this. Discharge Plan Discharge Chief Complaint: Wound/Laceration Clinical Impression: Seizure, Forehead laceration, Contusion, knee, Abrasions of multiple sites, Fracture of finger of left hand Patient Disposition: Home, Self-Care Time of Disposition Decision: :01 Condition: Good Prescriptions / Home Meds: No Action lamotrigine 200 mg tablet lamotrigine 100 mg tablet levetiracetam 1,000 mg tablet PO Print Language: Setswana Instructions: Laceration (ED), Contusion in Adults (ED) Additional Instructions: Sutures can be removed in 5 to 7 days. Use topical antibiotic ointment and Moderma to help reduce scarring. Return to emergency department as needed. Please follow-up closely with your neurologist due to your increased seizure frequency. Referrals: ALLIE REYES [Primary Care Provider, Unknown] - 1 week Procedures ED Procedure Instructions Procedures Procedures: Facial laceration repair; the forehead laceration was infiltrated with 1% lidocaine. When anesthesia was obtained the laceration was irrigated with copious normal saline. 9, 5-0 Ethilon sutures were placed into the wound edges with good wound edge approximation. Patient tolerated procedure well and bacitracin was applied topically. Fracture care without manipulation, a finger splint was applied by myself to the left index finger and taped in place. An Rashaun wrap was applied over the splint.
[2025-05-27] MEDS: LIDOCAINE HCL 1% 100 MG/10 ML MDV INJ (22:40)
[2025-05-27] MEDS: ACETAMINOPHEN 325 MG TABLET 650 MG PO (22:40)
[2025-05-27 23:03] VITALS: O2SAT 98
[2025-05-28] MEDS: BACITRACIN OINTMENT 28.4 GM TUBE 1 APPLIC TOPICAL (00:44)
[2025-05-28] MEDS: ONDANSETRON 4 MG RAPDIS TABLET SL (00:44)
[2025-05-28] MEDS: HYDROCODONE/ACET 5-325 MG TABLET 1 TAB PO (00:44)
[2025-05-28] MEDS: HYDROCODONE/ACET 5-325 MG TABLET 2 TAB PO (01:20)
== END 2025-05-28 01:25 | disposition home or self-care (01) ==
PROVIDERS: Emergency Provider Emergency Medicine; PCP Family Medicine
DX: G40.909 Epilepsy, unspecified, not intractable, without status epilepticus (principal); S01.81XA Laceration without foreign body of other part of head, initial encounter; S80.02XA Contusion of left knee, initial encounter; S80.01XA Contusion of right knee, initial encounter; T14.8XXA Other injury of unspecified body region, initial encounter; S62.661A Nondisplaced fracture of distal phalanx of left index finger, initial encounter for closed fracture; R22.0 Localized swelling, mass and lump, head; M79.645 Pain in left finger(s)
CPT/HCPCS: 29130; 70450; 70486; 72125; 73140; 99285; Q0162